=== PATIENT | female | born 1945 | race Caucasian/White ===

== ENCOUNTER → 2016-08-28 | Outpatient (CLI) | payer MEDICARE, BC ==
--- NOTE | 2016-08-31 08:15 | MM ---
Reason for exam: screening (asymptomatic). Last mammogram was performed 1 year and 2 months ago. History: Patient is postmenopausal and history of other cancer. Family history of premenopausal breast cancer in maternal aunt, breast cancer in sister at age 70, and breast cancer in maternal aunt. Physical Findings: A clinical breast exam by your physician is recommended on an annual basis and results should be correlated with mammographic findings. MG 3D Screening Mammo W/Cad Bilateral CC and MLO view(s) were taken. Prior study comparison: June 27, 2015, right breast MG 3d work up w/cad RT. June 20, 2015, bilateral MG screening mammo w CAD. There are scattered fibroglandular densities. Finding #1: There is a 4 mm oval mass in the upper outer quadrant of the left breast. Finding #2: There are stable typically benign calcifications in both breasts. ASSESSMENT: Incomplete: need additional imaging evaluation, BI-RAD 0 RECOMMENDATION: Ultrasound of the left breast. [facility] will attempt to contact patient to return for ultrasound.
== END | disposition home or self-care (01) ==
LOC: RADMAMWWP 12:48
PROVIDERS: ATTEND Internal Medicine
DX: Z12.31 Encounter for screening mammogram for malignant neoplasm of breast (principal)
CPT/HCPCS: 77063; G0202

== ENCOUNTER → 2016-09-02 | Outpatient (CLI) | payer MEDICARE, BC ==
--- NOTE | 2016-09-02 11:56 | USB ---
Reason for exam: additional evaluation requested from abnormal screening. History: Patient is postmenopausal and history of other cancer. Family history of premenopausal breast cancer in maternal aunt, breast cancer in sister at age 70, and breast cancer in maternal aunt. Physical Findings: Nurse Summary: All soft, nodular, movable (nurse ts). US Breast Workup LT Left breast ultrasound demonstrates no cystic or solid lesion seen. These results were verbally communicated with the patient and result sheet given to the patient on 09/02/16. ASSESSMENT: Negative, BI-RAD 1 RECOMMENDATION: Routine screening mammogram of both breasts in 1 year.
== END | disposition home or self-care (01) ==
LOC: RADUSWWP 10:15
PROVIDERS: ATTEND Internal Medicine
DX: R92.8 Other abnormal and inconclusive findings on diagnostic imaging of breast (principal)

== ENCOUNTER → 2018-03-09 | Outpatient (CLI) | payer MEDICARE, BC ==
[2018-03-09 09:27] LABS: Basophils % (A) 1 %; Eosinophils # (A) 0.1 k/uL (0-0.7); Eosinophils % (A) 1 %; HCT 40.5 % (34.0-46.0); HGB 12.9 gm/dL (11.4-16.0); Lymphocytes # (A) 0.8 k/uL (1.0-4.8); Lymphocytes % (A) 14 %; MCH 30.5 pg (25.0-35.0); MCHC 31.9 g/dL (31.0-37.0); MCV 95.7 fL (80.0-100.0); Mean Platelet Volume 6.6; Monocytes # (A) 0.3 k/uL (0-1.0); Monocytes % (A) 5 %; Neutrophils # (A) 4.7 k/uL (1.3-7.7); Neutrophils % (A) 78 %; Platelet Count 225 k/uL (150-450); RBC 4.23 m/uL (3.80-5.40); RDW 13.9 % (11.5-15.5)
[2018-03-09 09:40] LABS: ALT 24 U/L (9-52); AST 30 U/L (14-36); Albumin 4.3 g/dL (3.5-5.0); Alkaline Phosphatase 26 U/L (38-126); Anion Gap 9 mmol/L; Blood Urea Nitrogen 23 mg/dL (7-17); Calcium 9.7 mg/dL (8.4-10.2); Carbon Dioxide 26 mmol/L (22-30); Chloride 107 mmol/L (98-107); Cholesterol 163 mg/dL (<200); Glucose 94 mg/dL (74-99); HDL Cholesterol 71 mg/dL (40-60); LDL Cholesterol,Calculated 74 mg/dL (0-99); Potassium 4.7 mmol/L (3.5-5.1); Sodium 142 mmol/L (137-145); Total Bilirubin 0.5 mg/dL (0.2-1.3); Total Protein 7.2 g/dL (6.3-8.2); Triglycerides 90 mg/dL (<150)
--- NOTE | 2018-03-09 09:48 | BD ---
EXAMINATION TYPE: Axial Bone Density DATE OF EXAM: 03/09/2018 COMPARISON: DEXA June 20, 2015. CLINICAL HISTORY: Postmenopausal female with osteopenia per order Height: 5 FT 4 1/2 IN Weight: 187 FRAX RISK QUESTIONS: Secondary Osteoporosis: RISK FACTORS HISTORY OF: Family History of Osteoporosis: YES Active: YES Postmenopausal woman: PART HYST AGE 41 If Premenopausal, do you have irregular periods: Take estrogen and/or progesterone medications: TOOK FOR APPROX 5 YEARS AFTER HYST Lost more than 2 inches in height since high school: YES MEDICATIONS: Additional Medications: SIMVASTATIN, EFFEXOR, MONTELUKAST Additional History: LUNG CANCER X3 CHEMO AND RADIATION EXAM MEASUREMENTS: Bone mineral densitometry was performed using the [employer] System. Bone mineral density as measured about the Lumbar spine is: ----- L1-L4(G/cm2): 1.337 T Score Values are as follows: ----- L2: 0.5 ----- L3: 2.0 ----- L4: 1.6 ----- L1-L4: 1.3 Bone mineral density has: INCREASED 4.8 % since study of: 2016 Bone mineral density about the R hip (g/cm2): 0.732 Bone mineral density about the L hip (g/cm2): 0.866 T Score values are as follows: -----R Neck: -2.2 -----L Neck: -1.2 -----R Total: -1.5 -----L Total: -1.3 Bone mineral density has: INCREASED 2.6 % since study of: IMPRESSION: Osteopenia (T Score between -2.5 and -1) is redemonstrated overall in both hips. Bone density noted s lightly increased or improved from prior. There remains slightly increased risk of fracture and the patient may be considered for treatment. Re-Screen 2-5 years. NOTE: T-SCORE=SD OF THE YOUNG ADULT MEAN.
--- NOTE | 2018-03-09 13:05 | MM ---
Reason for exam: screening (asymptomatic). Last mammogram was performed 1 year and 6 months ago. History: Patient is postmenopausal and history of other cancer. Family history of premenopausal breast cancer in maternal aunt, breast cancer in sister at age 70, and breast cancer in maternal aunt. Physical Findings: A clinical breast exam by your physician is recommended on an annual basis and results should be correlated with mammographic findings. MG 3D Screening Mammo W/Cad Bilateral CC and MLO view(s) were taken. Prior study comparison: August 28, 2016, bilateral MG 3d screening mammo w/cad. June 27, 2015, right breast MG 3d work up w/cad RT. The breast tissue is heterogeneously dense. This may lower the sensitivity of mammography. There are benign appearing round calcifications bilaterally. There is no discrete abnormality. ASSESSMENT: Benign, BI-RAD 2 RECOMMENDATION: Routine screening mammogram of both breasts in 1 year.
== END | disposition home or self-care (01) ==
LOC: RADMAMWWP 07:09
PROVIDERS: ATTEND Internal Medicine
DX: Z12.31 Encounter for screening mammogram for malignant neoplasm of breast (principal); M85.851 Other specified disorders of bone density and structure, right thigh; M85.852 Other specified disorders of bone density and structure, left thigh; E78.5 Hyperlipidemia, unspecified; J44.9 Chronic obstructive pulmonary disease, unspecified; F32.9 Major depressive disorder, single episode, unspecified; C34.90 Malignant neoplasm of unspecified part of unspecified bronchus or lung
CPT/HCPCS: 36415; 77063; 77067; 77080; 80053; 80061; 85025

== ENCOUNTER → 2018-07-14 | Outpatient (CLI) | payer MEDICARE, BC ==
[2018-07-14 08:46] LABS: ALT 33 U/L (9-52); AST 25 U/L (14-36); Albumin 4.6 g/dL (3.5-5.0); Alkaline Phosphatase 32 U/L (38-126); Anion Gap 8 mmol/L; Blood Urea Nitrogen 25 mg/dL (7-17); Calcium 9.6 mg/dL (8.4-10.2); Carbon Dioxide 28 mmol/L (22-30); Chloride 105 mmol/L (98-107); Glucose 95 mg/dL (74-99); Potassium 4.5 mmol/L (3.5-5.1); Sodium 141 mmol/L (137-145); Total Bilirubin 0.5 mg/dL (0.2-1.3)
--- NOTE | 2018-07-14 11:55 | US ---
EXAMINATION TYPE: US abdomen complete DATE OF EXAM: 07/14/2018 COMPARISON: None CLINICAL HISTORY: 72-year-old female R10.9 abdominal pain. N/V, and bloating. TECHNIQUE: Multiple sonographic images of the abdomen are obtained. FINDINGS: EXAM MEASUREMENTS: Liver Length: 15.3 cm Gallbladder Wall: 0.2 cm CBD: 0.5 cm Spleen: 9.2 cm Right Kidney: 11.3 x 4.5 x 5.7 cm Left Kidney: 10.3 x 5.1 x 5.6 cm Pancreas: Suboptimal visualization of the pancreatic tail secondary to shadowing from bowel gas. Visu alized portions show no gross pathology. Liver: wnl Gallbladder: Borderline distended likely due to fasting state. No wall thickening, pericholecystic f luid, or shadowing calculi. Evidence for sonographic Grande's sign: No CBD: wnl Spleen: wnl Right Kidney: No hydronephrosis. Left Kidney: No hydronephrosis. Upper IVC: wnl Abd Aorta: Atherosclerotic calcifications noted. IMPRESSION: Borderline distended gallbladder likely due to fasting state. No evidence for cholelithiasis or ancil morenita findings of acute cholecystitis.
== END | disposition home or self-care (01) ==
LOC: RADUSWWP 07:43
PROVIDERS: ATTEND Internal Medicine
DX: R10.9 Unspecified abdominal pain (principal); R14.0 Abdominal distension (gaseous); R11.2 Nausea with vomiting, unspecified; M85.80 Other specified disorders of bone density and structure, unspecified site
CPT/HCPCS: 76700; 80053

== ENCOUNTER → 2018-07-25 | Outpatient (CLI) | payer MEDICARE, BC ==
[~2018-07-25] MED LIST: SODIUM CHLORIDE 0.9% 500 ML 500 ML in EMPTY BAG 1 BAG IV PRN; ZOLEDRONIC ACID 5 MG in SODIUM CHLORIDE 0.9% 100 ML IV NR
[2018-07-25 11:31] VITALS: BP 129/78; PULSE 73; RESP 16; TEMP 98.1
== END | disposition home or self-care (01) ==
LOC: PROCWHC3 11:04
PROVIDERS: ATTEND Internal Medicine
DX: M81.0 Age-related osteoporosis without current pathological fracture (principal); Z91.048 Other nonmedicinal substance allergy status; Z88.5 Allergy status to narcotic agent; Z88.1 Allergy status to other antibiotic agents
CPT/HCPCS: 96365; J3489

== ENCOUNTER 2018-09-14 16:36 | Inpatient (IN) | payer MEDICARE, BC ==
[2018-09-14] MEDS ORDERED: SODIUM CHLORIDE 0.9% 1,000 ML IV STA ×2 (17:05)
--- NOTE | 2018-09-14 17:20 | ED ---
Weakness HPI - General Chief complaint: Weakness Stated complaint: weakness Time Seen by Provider: 09/14/18 17:05 Source: patient, RN notes reviewed, old records reviewed Mode of arrival: wheelchair Limitations: no limitations - History of Present Illness Initial comments: This is a 72-year-old female the ER for evaluation. Patient resents today for evaluation of weakness. No history of C. diff. This and diarrhea nausea no vomiting. Patient feels weak with decreased oral intake decreased appetite. Patient denies recent sick contacts denies recent travel history. No significant complaints. No recent change in medications MD Complaint: generalized weakness -: days(s) Location: generalized Severity: mild Severity scale (1-10): 3 Consistency: intermittent Improves with: none Worsens with: none Context: recent illness, history of similar Associated Symptoms: loss of appetite, nausea/vomiting - Related Data Home Medications Medication Instructions Recorded Confirmed Calcium Carbonate/Vitamin D3 1 each PO DAILY 06/05/14 09/14/18 [Calcium 600 + Vit D Tablet] Montelukast Sodium [Singulair] 10 mg PO DAILY 06/05/14 09/14/18 Simvastatin [Zocor] 20 mg PO DAILY 06/05/14 09/14/18 Lisinopril [Zestril] 5 mg PO DAILY 07/25/18 09/14/18 Venlafaxine HCl [Effexor XR] 75 mg PO DAILY 07/25/18 09/14/18 Acetaminophen Tab [Tylenol] 1,500 mg PO BID 09/14/18 09/14/18 Aspirin [[place] Aspirin EC] 81 mg PO DAILY 09/14/18 09/14/18 Budesonide [Pulmicort] 0.5 mg INHALATION RT-QID 09/14/18 09/14/18 Ipratropium-Albuterol Nebulize 3 ml INHALATION RT-QID 09/14/18 09/14/18 [Duoneb 0.5 mg-3 mg/3 ml Soln] Multivitamins, Thera [Multivitamin 1 tab PO DAILY 09/14/18 09/14/18 (formulary)] Turmeric Root Extract [Turmeric] 500 mg PO DAILY 09/14/18 09/14/18 metroNIDAZOLE [Flagyl] 500 mg PO Q8HR 09/14/18 09/14/18 Allergies Allergy/AdvReac Type Severity Reaction Status Date / Time cephalexin monohydrate Allergy Unknown Verified 09/14/18 17:46 [From Keflex] codeine AdvReac Nausea Verified 09/14/18 17:46 METAL Allergy Swelling Uncoded 09/14/18 16:51 Review of Systems ROS Statement: Those systems with pertinent positive or pertinent negative responses have been documented in the HPI. ROS Other: All systems not noted in ROS Statement are negative. Past Medical History Past Medical History: Asthma, Cancer, COPD, Hyperlipidemia Additional Past Medical History / Comment(s): Hx. arthritis History of Any Multi-Drug Resistant Organisms: None Reported Past Surgical History: Hysterectomy, Orthopedic Surgery Additional Past Surgical History / Comment(s): Hx. cataracts removed - bilat Hx.left carotid endart 2-3 yrs ago Hx. partial hyster 1988 Hx 1970rt ankle surgery after falling (5 operations) after 2.5 yrs Past Anesthesia/Blood Transfusion Reactions: No Reported Reaction Past Psychological History: No Psychological Hx Reported Smoking Status: Former smoker Past Alcohol Use History: Rare Past Drug Use History: None Reported - Past Family History Father Family Medical History: Cancer Additional Family Medical History / Comment(s): skin cancer Mother Additional Family Medical History / Comment(s): bedridden with arthritis Sister(s) Family Medical History: Cancer Additional Family Medical History / Comment(s): breast cancer-1 sister skin cancer a nother sister Brother(s) Family Medical History: Cancer Additional Family Medical History / Comment(s): brother-liver with mets- , another brother - agent orange exposeure- General Exam Limitations: no limitations General appearance: alert, in no apparent distress Head exam: Present: atraumatic, normocephalic, normal inspection Eye exam: Present: normal appearance, PERRL, EOMI. Absent: scleral icterus, conjunctival injection, periorbital swelling ENT exam: Present: normal exam, mucous membranes moist Neck exam: Present: normal inspection. Absent: tenderness, meningismus, l ymphadenopathy Respiratory exam: Present: normal lung sounds bilaterally. Absent: respiratory distress, wheezes, rales, rhonchi, stridor Cardiovascular Exam: Present: normal rhythm, tachycardia, normal heart sounds. Absent: systolic murmur, diastolic murmur, rubs, gallop, clicks GI/Abdominal exam: Present: soft, normal bowel sounds. Absent: distended, tenderness, guarding, rebound, rigid Extremities exam: Present: normal inspection, full ROM, normal capillary refill. Absent: tenderness, pedal edema, joint swelling, calf tenderness Back exam: Present: normal inspection Neurological exam: Present: alert, oriented X3, CN II-XII intact Psychiatric exam: Present: normal affect, normal mood Skin exam: Present: warm, dry, intact, normal color. Absent: rash Course Vital Signs 09/14/18 09/14/18 16:43 18:46 Temperature 99.5 F Pulse Rate 110 H 51 L Respiratory 20 18 Rate Blood Pressure 86/58 137/88 O2 Sat by Pulse 98 97 Oximetry - Reevaluation(s) Reevaluation #1: 09/14/18 20:15 Medical record is reviewed Reevaluation #2: 09/14/18 20:15 Patient feels improved EKG Findings - EKG Comments: EKG Findings:: EKG shows sinus rhythm at 93, IN 140, QRS 86, QTc 479 Medical Decision Making - Medical Decision Making 72 female the ER for evaluation. Patient has history of significant weakness. Patient's coming for worsening weakness worsening appetite, dehydration. We'll admit for IV hydration and treatment of C. diff. - Lab Data Result diagrams: 09/14/18 17:34 09/14/18 17:34 Lab Results 09/14/18 09/14/18 09/14/18 Range/Units 17:34 17:34 17:34 WBC 13.5 H (3.8-10.6) k/uL RBC 4.47 (3.80-5.40) m/uL Hgb 13.4 (11.4-16.0) gm/dL Hct 41.5 (34.0-46.0) % MCV 92.7 (80.0-100.0) fL MCH 29.9 (25.0-35.0) pg MCHC 32.2 (31.0-37.0) g/dL RDW 14.3 (11.5-15.5) % Plt Count 251 (150-450) k/uL Neutrophils % 87 % Lymphocytes % 6 % Monocytes % 5 % Eosinophils % 0 % Basophils % 0 % Neutrophils # 11.8 H (1.3-7.7) k/uL Lymphocytes # 0.7 L (1.0-4.8) k/uL Monocytes # 0.7 (0-1.0) k/uL Eosinophils # 0.1 (0-0.7) k/uL Basophils # 0.0 (0-0.2) k/uL PT (9.0-12.0) sec INR (<1.2) APTT (22.0-30.0) sec Sodium 138 (137-145) mmol/L Potassium 3.9 (3.5-5.1) mmol/L Chloride 103 (98-107) mmol/L Carbon Dioxide 20 L (22-30) mmol/L Anion Gap 15 mmol/L BUN 16 (7-17) mg/dL Creatinine 0.72 (0.52-1.04) mg/dL Est GFR (CKD-EPI)AfAm >90 (>60 ml/min/1.73 sqM) Est GFR (CKD-EPI)NonAf 84 (>60 ml/min/1.73 sqM) Glucose 112 H (74-99) mg/dL Plasma Lactic Acid Nav 1.3 (0.7-2.0) mmol/L Calcium 8.7 (8.4-10.2) mg/dL Phosphorus 2.7 (2.5-4.5) mg/dL Magnesium 2.1 (1.6-2.3) mg/dL Total Bilirubin 0.5 (0.2-1.3) mg/dL AST 31 (14-36) U/L ALT 14 (9-52) U/L Alkaline Phosphatase 56 (38-126) U/L Troponin I (0.000-0.034) ng/mL Total Protein 7.4 (6.3-8.2) g/dL Albumin 4.2 (3.5-5.0) g/dL 09/14/18 09/14/18 Range/Units 17:34 18:00 WBC (3.8-10.6) k/uL RBC (3.80-5.40) m/uL Hgb (11.4-16.0) gm/dL Hct (34.0-46.0) % MCV (80.0-100.0) fL MCH (25.0-35.0) pg MCHC (31.0-37.0) g/dL RDW (11.5-15.5) % Plt Count (150-450) k/uL Neutrophils % % Lymphocytes % % Monocytes % % Eosinophils % % Basophils % % Neutrophils # (1.3-7.7) k/uL Lymphocytes # (1.0-4.8) k/uL Monocytes # (0-1.0) k/uL Eosinophils # (0-0.7) k/uL Basophils # (0-0.2) k/uL PT 11.0 (9.0-12.0) sec INR 1.0 (<1.2) APTT 25.5 (22.0-30.0) sec Sodium (137-145) mmol/L Potassium (3.5-5.1) mmol/L Chloride (98-107) mmol/L Carbon Dioxide (22-30) mmol/L Anion Gap mmol/L BUN (7-17) mg/dL Creatinine (0.52-1.04) mg/dL Est GFR (CKD-EPI)AfAm (>60 ml/min/1.73 sqM) Est GFR (CKD-EPI)NonAf (>60 ml/min/1.73 sqM) Glucose (74-99) mg/dL Plasma Lactic Acid Nav (0.7-2.0) mmol/L Calcium (8.4-10.2) mg/dL Phosphorus (2.5-4.5) mg/dL Magnesium (1.6-2.3) mg/dL Total Bilirubin (0.2-1.3) mg/dL AST (14-36) U/L ALT (9-52) U/L Alkaline Phosphatase (38-126) U/L Troponin I <0.012 (0.000-0.034) ng/mL Total Protein (6.3-8.2) g/dL Albumin (3.5-5.0) g/dL - Radiology Data Radiology results: report reviewed (Chest x-rays negative for acute disease), image reviewed Disposition Clinical Impression: Dehydration, Weakness, C. difficile colitis Disposition: ADMITTED IP TO THIS [facility] Condition: Fair Is patient prescribed a controlled substance at d/c from ED?: No Referrals: Dedra Teague MD [Primary Care Provider] - 1-2 days
[2018-09-14 18:02] LABS: Basophils % (A) 0 %; Eosinophils # (A) 0.1 k/uL (0-0.7); Eosinophils % (A) 0 %; HCT 41.5 % (34.0-46.0); HGB 13.4 gm/dL (11.4-16.0); Lymphocytes # (A) 0.7 k/uL (1.0-4.8); Lymphocytes % (A) 6 %; MCH 29.9 pg (25.0-35.0); MCHC 32.2 g/dL (31.0-37.0); MCV 92.7 fL (80.0-100.0); Mean Platelet Volume 7.8; Monocytes # (A) 0.7 k/uL (0-1.0); Monocytes % (A) 5 %; Neutrophils # (A) 11.8 k/uL (1.3-7.7); Neutrophils % (A) 87 %; Platelet Count 251 k/uL (150-450); RBC 4.47 m/uL (3.80-5.40); RDW 14.3 % (11.5-15.5); WBC 13.5 k/uL (3.8-10.6)
[2018-09-14 18:07] LABS: ALT 14 U/L (9-52); AST 31 U/L (14-36); African American GFR (CKD) >90 (>60 ml/min/1.73 sqM); Albumin 4.2 g/dL (3.5-5.0); Alkaline Phosphatase 56 U/L (38-126); Anion Gap 15 mmol/L; Blood Urea Nitrogen 16 mg/dL (7-17); Calcium 8.7 mg/dL (8.4-10.2); Carbon Dioxide 20 mmol/L (22-30); Chloride 103 mmol/L (98-107); Glucose 112 mg/dL (74-99); Magnesium 2.1 mg/dL (1.6-2.3); Phosphorus 2.7 mg/dL (2.5-4.5); Potassium 3.9 mmol/L (3.5-5.1); Sodium 138 mmol/L (137-145); Total Bilirubin 0.5 mg/dL (0.2-1.3); Total Protein 7.4 g/dL (6.3-8.2)
[2018-09-14 18:24] LABS: Partial Thromboplastin Time 25.5 sec (22.0-30.0)
--- NOTE | 2018-09-14 18:35 | XR ---
EXAMINATION: XR chest 2V DATE AND TIME: 09/14/2018 6:15 PM CLINICAL INDICATION: PHH; Weakness TECHNIQUE: Departmental protocol COMPARISON: None FINDINGS: The lungs are clear. The pleural spaces are negative. The cardiac silhouette is not enlarged. The remainder of the mediastinal silhouette is unremarkable. The skeletal structures and soft tissues are negative for acute findings. IMPRESSION: NO ACUTE PROCESS.
[2018-09-14] MEDS ORDERED: metroNIDAZOLE 500 MG TAB PO STA (20:13)
[2018-09-14] MEDS ORDERED: ONDANSETRON 4 MG/2 ML VIAL IVP STA (20:13)
[2018-09-14] MEDS ORDERED: ONDANSETRON 4 MG/2 ML VIAL IVP PRN (20:13)
[2018-09-14 20:30] LABS: Appearance,Urine Clear (Clear); Bilirubin,Urine Negative (Negative); Blood,Urine Negative (Negative); Color,Urine Light Red; Glucose,Urine (UA) Negative (Negative); Hyaline Casts,Urine 4 /lpf (0-2); Ketones,Urine 3+ (Negative); Leukocyte Esterase,Urine Moderate (Negative); Mucus,Urine Many /hpf; Nitrite,Urine Negative (Negative); Protein,Urine 1+ (Negative); RBC,Urine 3 /hpf (0-5); Squamous Epithelial Cell,Urine 1 /hpf (0-4); Urobilinogen,Urine <2.0 mg/dL (<2.0)
[2018-09-15] MEDS ORDERED: IBUPROFEN 800 MG TAB PO STA (00:20)
[2018-09-15] MEDS ORDERED: ACETAMINOPHEN TAB 500 MG TAB PO STA (00:20)
[2018-09-15] MEDS: ENOXAPARIN 40 MG/0.4 ML SYRINGE SQ SCH (09:09)
[2018-09-15] MEDS: metroNIDAZOLE 500 MG TAB PO SCH ×2 (09:09→13:46)
[2018-09-15] MEDS: PANTOPRAZOLE 40 MG/10 ML VIAL IVP SCH (09:09)
[2018-09-15] MEDS: ACETAMINOPHEN TAB 325 MG TAB PO PRN ×2 (10:52→21:06)
[2018-09-15] MEDS ORDERED: BUDESONIDE 0.5 MG/2 ML NEBU INHALATION SCH (12:00)
[2018-09-15] MEDS: IPRATROPIUM-ALBUTEROL 3 ML NEB INHALATION SCH ×3 (13:34→19:34)
[2018-09-15] MEDS: BUDESONIDE 0.5 MG/2 ML NEBU INHALATION SCH ×2 (13:34→19:34)
[2018-09-15] MEDS: CHOLESTYRAMINE (WITH SUGAR) 4 GM PACKET PO SCH ×2 (15:00→18:08)
[2018-09-15] MEDS: metroNIDAZOLE-NS PMX 500 MG in SALINE 1 100ML.BAG IVPB SCH (15:00)
[2018-09-15] MEDS ORDERED: ACETAMINOPHEN TAB 500 MG TAB PO PRN (21:00)
[2018-09-16] MEDS: metroNIDAZOLE-NS PMX 500 MG in SALINE 1 100ML.BAG IVPB SCH ×4 (00:23→23:57)
--- NOTE | 2018-09-16 01:12 | P.HPIM ---
History of Present Illness H&P Date: 09/15/18 Chief Complaint: Generalized weakness and diarrhea. Patient is a 72 old female with a known history of asthma/COPD, hyperlipidemia presents to hospital with generalized weakness and diarrhea. Patient was recently diagnosed with C. diff infection by her primary care physician was placed on oral metronidazole tablets. Patient is still having diarrhea and became weak and presents to ER. Patient also having decreased oral intake and poor appetite. No complains of chest pain or shortness of breath. No headache or dizziness or lightheadedness. Patient denied dysuria or hematuria. Urinalysis showed leukocyte esterase positive and white blood cells 29. Denied any fever or chills. WBC 13.5 Patient was on antibiotics for bronchitis 2 weeks prior. Review of Systems Constitutional: Patient denies any fever or chills . Patient does have generalized weakness and poor appetite. Abdomen: Patient denied nausea vomiting and diarrhea and abdominal pain. Cardiovascular: Patient denies any chest pain or short of breath no pa lpitations. Respiratory: patient denied any cough is from production. No shortness of breath Neurologic: Patient denied any numbness or tingling headache. Musculoskeletal: Patient denies any complaints of joint swelling or deformity. Skin: Negative Psychiatric: Negative Endocrine: No heat or cold intolerance. No recent weight gain. Genitourinary: No dysuria or hematuria. All other 14 point ROS negative except the above Past Medical History Past Medical History: Asthma, Cancer, COPD, Hyperlipidemia Additional Past Medical History / Comment(s): Hx. arthritis History of Any Multi-Drug Resistant Organisms: None Reported Past Surgical History: Hysterectomy, Orthopedic Surgery Additional Past Surgical History / Comment(s): Hx. cataracts removed - bilat Hx.left carotid endart 2-3 yrs ago Hx. partial hyster 1987 Hx 1970rt ankle surgery after falling (5 operations) after 2.5 yrs Past Anesthesia/Blood Transfusion Reactions: No Reported Reaction Past Psychological History: No Psychological Hx Reported Smoking Status: Former smoker Past Alcohol Use History: Rare Past Drug Use History: None Reported - Past Family History Father Family Medical History: Cancer Additional Family Medical History / Comment(s): skin cancer Mother Additional Family Medical History / Comment(s): bedridden with arthritis Sister(s) Family Medical History: Cancer Additional Family Medical History / Comment(s): breast cancer-1 sister skin cancer a nother sister Brother(s) Family Medical History: Cancer Additional Family Medical History / Comment(s): brother-liver with mets- , another brother - agent orange exposeure- Medications and Allergies Home Medications Medication Instructions Recorded Confirmed Type Calcium Carbonate/Vitamin D3 1 each PO DAILY 06/05/14 09/14/18 History [Calcium 600 + Vit D Tablet] Montelukast Sodium [Singulair] 10 mg PO DAILY 06/05/14 09/14/18 History Simvastatin [Zocor] 20 mg PO DAILY 06/05/14 09/14/18 History Lisinopril [Zestril] 5 mg PO DAILY 07/25/18 09/14/18 History Venlafaxine HCl [Effexor XR] 75 mg PO DAILY 07/25/18 09/14/18 History Acetaminophen Tab [Tylenol] 1,500 mg PO BID 09/14/18 09/14/18 History Aspirin [[place] Aspirin EC] 81 mg PO DAILY 09/14/18 09/14/18 History Budesonide [Pulmicort] 0.5 mg INHALATION RT-QID 09/14/18 09/14/18 History Ipratropium-Albuterol Nebulize 3 ml INHALATION RT-QID 09/14/18 09/14/18 History [Duoneb 0.5 mg-3 mg/3 ml Soln] Multivitamins, Thera [Multivitamin 1 tab PO DAILY 09/14/18 09/14/18 History (formulary)] Turmeric Root Extract [Turmeric] 500 mg PO DAILY 09/14/18 09/14/18 History metroNIDAZOLE [Flagyl] 500 mg PO Q8HR 09/14/18 09/14/18 History Allergies Allergy/AdvReac Type Severity Reaction Status Date / Time cephalexin monohydrate Allergy Unknown Verified 09/14/18 17:46 [From Keflex] codeine AdvReac Nausea Verified 09/14/18 17:46 METAL Allergy Swelling Uncoded 09/14/18 16:51 Physical Exam Vitals: Vital Signs Temp Pulse Pulse Resp BP BP Pulse Ox 09/15/18 10:40 18 09/15/18 08:08 97.8 F 101 H 18 98/66 96 09/15/18 07:40 98.1 F 18 109/67 97 09/15/18 06:48 99.0 F 85 18 100/68 98 06/27/19 01:36 100.8 F H 09/15/18 00:16 102.2 F H 94 18 111/67 95 09/14/18 21:06 97 18 119/63 96 09/14/18 18:46 51 L 18 137/88 97 09/14/18 16:43 99.5 F 110 H 20 86/58 98 Intake and Output 09/14/18 09/15/18 09/15/18 22:59 06:59 14:59 Other: Weight 81.647 kg PHYSICAL EXAMINATION: Patient is lying in the bed comfortably, no acute distress, awake alert and oriented.. HEENT: Normocephalic. Neck is supple. Pupils reactive. Nostrils clear. Oral cavity is moist. Ears reveal no drainage. Neck reveals no JVD, carotid bruits, or thyromegaly. CHEST EXAMINATION: Trachea is central. Symmetrical expansion. Lung alas clear to auscultation and percussion. CARDIAC: Normal S1, S2 with no gallops. No murmurs ABDOMEN: Soft. Bowel sounds normal. No organomegaly. No abdominal bruits. Extremities: reveal no edema. No clubbing or cyanosis Neurologically awake, alert, oriented x3 with well-coordinated movements. No focal deficits noted Skin: No rash or skin lesions. Psychiatric: Coperative. Nonsuicidal Musculoskeletal: No joint swelling or deformity. Normal range of motion. Results CBC & Chem 7: 09/14/18 17:34 09/14/18 17:34 Labs: Abnormal Lab Results - Last 24 Hours (Table) 09/14/18 09/14/18 09/14/18 Range/Units 17:34 17:34 19:48 WBC 13.5 H (3.8-10.6) k/uL Neutrophils # 11.8 H (1.3-7.7) k/uL Lymphocytes # 0.7 L (1.0-4.8) k/uL Carbon Dioxide 20 L (22-30) mmol/L Glucose 112 H (74-99) mg/dL Urine Protein 1+ H (Negative) Urine Ketones 3+ H (Negative) Ur Leukocyte Esterase Moderate H (Negative) Urine WBC 29 H (0-5) /hpf Hyaline Casts 4 H (0-2) /lpf Urine Mucus Many H (None) /hpf Microbiology - Last 24 Hours (Table) 09/14/18 19:48 Urine Culture - Preliminary Urine,Voided Thrombosis Risk Factor Assmnt - DVT/VTE Prophylaxis DVT/VTE Prophylaxis: Pharmacologic Prophylaxis ordered - Choose All That Apply Each Factor Represents 1 point: Abnormal pulmonary function (COPD) Each Risk Factor Represents 2 Points: Age 61-74 years Each Risk Factor Represents 3 Points: Family history of DVT/PE Thrombosis Risk Factor Assessment Total Risk Factor Score: 6 Thrombosis Risk Factor Assessment Level: High Risk Assessment and Plan Assessment: Diarrhea secondary to acute C. diff infection Acute urinary tract infection with gram-negative bacilli COPD/asthma Generalized weakness and poor oral intake and Hyperlipidemia Osteoarthritis History of left carotid endarterectomy Previous history of smoking DVT prophylaxis Plan: Patient will be continued on gentle hydration. Continue with metronidazole, changed to IV. We will also start on ceftriaxone for possible urinary tract infection and follow-up final urine culture reports. will add questron tab. PTOT to be consulted and further recommendations based on the clinical course. Time with Patient: Greater than 30
[2018-09-16] MEDS: ASPIRIN 81 MG PO SCH (07:10)
[2018-09-16] MEDS: LISINOPRIL 5 MG TAB PO SCH (07:10)
[2018-09-16] MEDS: VENLAFAXINE HCL ER 75 MG CAP PO SCH (07:10)
[2018-09-16] MEDS: MONTELUKAST 10 MG TAB PO SCH (07:11)
[2018-09-16] MEDS: PANTOPRAZOLE 40 MG/10 ML VIAL IVP SCH (07:11)
[2018-09-16] MEDS: CALCIUM CARB-VIT D 500MG-200UN 1 EACH TAB PO SCH (07:11)
[2018-09-16] MEDS: ENOXAPARIN 40 MG/0.4 ML SYRINGE SQ SCH (07:12)
[2018-09-16] MEDS: BUDESONIDE 0.5 MG/2 ML NEBU INHALATION SCH ×2 (08:13→20:01)
[2018-09-16] MEDS: IPRATROPIUM-ALBUTEROL 3 ML NEB INHALATION SCH ×4 (08:13→20:01)
[2018-09-16 09:03] LABS: Basophils % (A) 0 %; Eosinophils # (A) 0.1 k/uL (0-0.7); Eosinophils % (A) 1 %; HCT 33.6 % (34.0-46.0); HGB 10.9 gm/dL (11.4-16.0); Lymphocytes # (A) 0.7 k/uL (1.0-4.8); Lymphocytes % (A) 5 %; MCH 29.9 pg (25.0-35.0); MCHC 32.4 g/dL (31.0-37.0); MCV 92.3 fL (80.0-100.0); Mean Platelet Volume 8.1; Monocytes # (A) 0.5 k/uL (0-1.0); Monocytes % (A) 4 %; Neutrophils # (A) 12.4 k/uL (1.3-7.7); Neutrophils % (A) 89 %; Platelet Count 228 k/uL (150-450); RBC 3.63 m/uL (3.80-5.40); RDW 13.9 % (11.5-15.5); WBC 13.8 k/uL (3.8-10.6)
[2018-09-16 09:10] LABS: African American GFR (CKD) >90 (>60 ml/min/1.73 sqM); Anion Gap 11 mmol/L; Blood Urea Nitrogen 13 mg/dL (7-17); Calcium 7.9 mg/dL (8.4-10.2); Carbon Dioxide 20 mmol/L (22-30); Chloride 108 mmol/L (98-107); Glucose 104 mg/dL (74-99); Sodium 139 mmol/L (137-145)
[2018-09-16] MEDS: CHOLESTYRAMINE (WITH SUGAR) 4 GM PACKET PO SCH ×3 (09:56→16:47)
[2018-09-16] MEDS ORDERED: Potassium Replacement Protocol 1 EACH MISC MISCELLANE PRN ×2 (11:53→12:16)
[2018-09-16] MEDS: POTASSIUM CHLORIDE ER 20 MEQ TAB.ER PO SCH ×2 (12:27→14:48)
[2018-09-16] MEDS: SODIUM CHLORIDE 0.9% 1,000 ML IV SCH (12:28)
[2018-09-16] MEDS ORDERED: SODIUM CHLORIDE 0.9% 500 ML 1,000 ML IV ONE (16:08)
[2018-09-17] MEDS: SODIUM CHLORIDE 0.9% 1,000 ML IV SCH ×2 (02:12→14:53)
[2018-09-17] MEDS: metroNIDAZOLE-NS PMX 500 MG in SALINE 1 100ML.BAG IVPB SCH ×2 (07:42→15:37)
[2018-09-17] MEDS: IPRATROPIUM-ALBUTEROL 3 ML NEB INHALATION SCH ×4 (08:27→21:06)
[2018-09-17] MEDS: BUDESONIDE 0.5 MG/2 ML NEBU INHALATION SCH ×2 (08:27→21:06)
[2018-09-17] MEDS: PANTOPRAZOLE 40 MG/10 ML VIAL IVP SCH (09:42)
[2018-09-17] MEDS: CALCIUM CARB-VIT D 500MG-200UN 1 EACH TAB PO SCH (09:42)
[2018-09-17] MEDS: CHOLESTYRAMINE (WITH SUGAR) 4 GM PACKET PO SCH ×3 (09:42→17:42)
[2018-09-17] MEDS: ASPIRIN 81 MG PO SCH (09:42)
[2018-09-17] MEDS: LISINOPRIL 5 MG TAB PO SCH (09:42)
[2018-09-17] MEDS: ENOXAPARIN 40 MG/0.4 ML SYRINGE SQ SCH ×2 (09:42→09:48)
[2018-09-17] MEDS: MONTELUKAST 10 MG TAB PO SCH (09:42)
[2018-09-17] MEDS: VENLAFAXINE HCL ER 75 MG CAP PO SCH (09:42)
[2018-09-17] MEDS: VANCOMYCIN ORAL SOLUTION 250 MG/5 ML BOTTLE PO SCH ×2 (13:32→17:41)
[2018-09-17] MEDS: CHERRY FLAVOR 60 ML BOTTLE PO SCH ×2 (13:32→17:41)
[2018-09-18] MEDS: metroNIDAZOLE-NS PMX 500 MG in SALINE 1 100ML.BAG IVPB SCH ×3 (00:25→15:07)
[2018-09-18] MEDS: VANCOMYCIN ORAL SOLUTION 250 MG/5 ML BOTTLE PO SCH ×4 (00:25→17:14)
[2018-09-18] MEDS: CHERRY FLAVOR 60 ML BOTTLE PO SCH ×4 (00:25→17:14)
[2018-09-18] MEDS: SODIUM CHLORIDE 0.9% 1,000 ML IV SCH ×2 (05:01→17:15)
[2018-09-18 07:40] LABS: African American GFR (CKD) >90 (>60 ml/min/1.73 sqM); Anion Gap 6 mmol/L; Blood Urea Nitrogen 8 mg/dL (7-17); Calcium 7.9 mg/dL (8.4-10.2); Carbon Dioxide 24 mmol/L (22-30); Chloride 109 mmol/L (98-107); Glucose 102 mg/dL (74-99); Potassium 3.5 mmol/L (3.5-5.1); Sodium 139 mmol/L (137-145)
[2018-09-18] MEDS: LISINOPRIL 5 MG TAB PO SCH (07:46)
[2018-09-18] MEDS: ENOXAPARIN 40 MG/0.4 ML SYRINGE SQ SCH (07:46)
[2018-09-18] MEDS: ASPIRIN 81 MG PO SCH (07:46)
[2018-09-18] MEDS: PANTOPRAZOLE 40 MG TABLET PO SCH (07:46)
[2018-09-18] MEDS: MONTELUKAST 10 MG TAB PO SCH (07:46)
[2018-09-18] MEDS: CALCIUM CARB-VIT D 500MG-200UN 1 EACH TAB PO SCH (07:46)
[2018-09-18] MEDS: VENLAFAXINE HCL ER 75 MG CAP PO SCH (07:47)
[2018-09-18 08:10] LABS: Basophils % (A) 0 %; Eosinophils # (A) 0.2 k/uL (0-0.7); Eosinophils % (A) 2 %; Hypochromasia Slight; Lymphocytes % (A) 10 %; MCH 29.6 pg (25.0-35.0); MCHC 32.2 g/dL (31.0-37.0); MCV 91.8 fL (80.0-100.0); Mean Platelet Volume 7.8; Monocytes # (A) 0.4 k/uL (0-1.0); Monocytes % (A) 4 %; Neutrophils # (A) 8.6 k/uL (1.3-7.7); Neutrophils % (A) 84 %; Platelet Count 302 k/uL (150-450); RBC 3.71 m/uL (3.80-5.40); RDW 14.3 % (11.5-15.5); WBC 10.3 k/uL (3.8-10.6)
[2018-09-18] MEDS: BUDESONIDE 0.5 MG/2 ML NEBU INHALATION SCH ×2 (08:21→20:27)
[2018-09-18] MEDS: IPRATROPIUM-ALBUTEROL 3 ML NEB INHALATION SCH ×4 (08:21→20:26)
[2018-09-18] MEDS: CHOLESTYRAMINE (WITH SUGAR) 4 GM PACKET PO SCH ×3 (09:24→17:15)
--- NOTE | 2018-09-18 23:39 | P.PN ---
Subjective Progress Note Date: 09/16/18 Principal diagnosis: Acute C. diff infection Generalized weakness and diarrhea Patient is a 72 old female with a known history of asthma/COPD, hyperlipidemia presents to hospital with generalized weakness and diarrhea. Patient was recently diagnosed with C. diff infection by her primary care physician was placed on oral metronidazole tablets. Patient is still having diarrhea and became weak and presents to ER. Patient also having decreased oral intake and poor appetite. No complains of chest pain or shortness of breath. No headache or dizziness or lightheadedness. Patient denied dysuria or hematuria. Urinalysis showed leukocyte esterase positive and white blood cells 29. Denied any fever or chills. WBC 13.5 Patient was on antibiotics for bronchitis 2 weeks prior. 09/16/18 Patient is still having explosive diarrhea. Potassium is low this is being replaced. Currently being continued on Flagyl 500 mg 3 times a day. WBC 13.8. Urine culture is growing E. coli. Continued on ceftriaxone as well. No fever no chills. Patient does have nausea. No episodes of vomiting. Unable to tolerate oral diet. No complaints of chest pain or shortness of breath. Current medications reviewed. Objective - Vital Signs Vital signs: Vital Signs Temp 97.8 F 09/16/18 15:00 Pulse 84 09/16/18 20:22 Resp 16 09/16/18 15:00 BP 124/73 09/16/18 15:00 Pulse Ox 97 09/16/18 16:34 Intake & Output 09/16/18 09/16/18 09/17/18 06:59 18:59 06:59 Output Total 300 Balance -300 Output: Urine 300 Other: # Voids 1 4 # Bowel Movements 1 5 - Exam PHYSICAL EXAMINATION: Patient is lying in the bed comfortably, no acute distress, awake alert and oriented.. HEENT: Normocephalic. Neck is supple. Pupils reactive. Nostrils clear. Oral cavity is moist. Ears reveal no drainage. Neck reveals no JVD, carotid bruits, or thyromegaly. CHEST EXAMINATION: Trachea is central. Symmetrical expansion. Lung alas clear to auscultation and percussion. CARDIAC: Normal S1, S2 with no gallops. No murmurs ABDOMEN: Soft. Bowel sounds normal. No organomegaly. No abdominal bruits. Extremities: reveal no edema. No clubbing or cyanosis Neurologically awake, alert, oriented x3 with well-coordinated movements. No focal deficits noted Skin: No rash or skin lesions. Psychiatric: Coperative. Nonsuicidal Musculoskeletal: No joint swelling or deformity. Normal range of motion. - Labs CBC & Chem 7: 09/18/18 07:09 09/18/18 07:09 Labs: Abnormal Lab Results - Last 24 Hours (Table) 09/16/18 09/16/18 Range/Units 08:04 08:04 WBC 13.8 H (3.8-10.6) k/uL RBC 3.63 L (3.80-5.40) m/uL Hgb 10.9 L (11.4-16.0) gm/dL Hct 33.6 L (34.0-46.0) % Neutrophils # 12.4 H (1.3-7.7) k/uL Lymphocytes # 0.7 L (1.0-4.8) k/uL Potassium 3.0 L (3.5-5.1) mmol/L Chloride 108 H (98-107) mmol/L Carbon Dioxide 20 L (22-30) mmol/L Creatinine 0.49 L (0.52-1.04) mg/dL Glucose 104 H (74-99) mg/dL Calcium 7.9 L (8.4-10.2) mg/dL Microbiology - Last 24 Hours (Table) 09/14/18 19:48 Urine Culture - Preliminary Urine,Voided Gram Neg Bacilli Assessment and Plan Assessment: Diarrhea secondary to acute C. diff infection Acute urinary tract infection with gram-negative bacilli/E. coli COPD/asthma Generalized weakness and poor oral intake and Hyperlipidemia Osteoarthritis History of left carotid endarterectomy Previous history of smoking DVT prophylaxis Plan: Patient will be continued on gentle hydration. Continue with metronidazole, changed to IV. Continue with ceftriaxone for urinary tract infection and follow-up final urine culture reports. added questron tab. PTOT to be consulted and further recommendations based on the clinical course. Time with Patient: Greater than 30
--- NOTE | 2018-09-18 23:41 | P.PN ---
Subjective Progress Note Date: 09/17/18 Principal diagnosis: Acute C. diff infection Generalized weakness and diarrhea Patient is a 72 old female with a known history of asthma/COPD, hyperlipidemia presents to hospital with generalized weakness and diarrhea. Patient was recently diagnosed with C. diff infection by her primary care physician was placed on oral metronidazole tablets. Patient is still having diarrhea and became weak and presents to ER. Patient also having decreased oral intake and poor appetite. No complains of chest pain or shortness of breath. No headache or dizziness or lightheadedness. Patient denied dysuria or hematuria. Urinalysis showed leukocyte esterase positive and white blood cells 29. Denied any fever or chills. WBC 13.5 Patient was on antibiotics for bronchitis 2 weeks prior. 09/16/18 Patient is still having explosive diarrhea. Potassium is low this is being replaced. Currently being continued on Flagyl 500 mg 3 times a day. WBC 13.8. Urine culture is growing E. coli. Continued on ceftriaxone as well. No fever no chills. Patient does have nausea. No episodes of vomiting. Unable to tolerate oral diet. No complaints of chest pain or shortness of breath. 09/17/2018 Patient is still having diarrhea. Leukocytosis improved. Vancomycin by mouth will be added. Otherwise continued on ceftriaxone for urinary tract infection. Continue with supportive management. No fever no chills. Patient is generally weak and not tolerating oral diet very well. Decreased appetite. All other 14 point review of systems negative except the above. Current medications reviewed. Objective - Vital Signs Vital signs: Vital Signs Temp 98.1 F 09/17/18 19:58 Pulse 80 09/17/18 21:19 Resp 18 09/17/18 19:58 BP 116/63 09/17/18 19:58 Pulse Ox 98 09/17/18 19:58 Intake & Output 09/17/18 09/17/18 09/18/18 06:59 18:59 06:59 Intake Total 1445 600 Balance 1445 600 Intake: Intake, IV Titration 725 600 Amount Sodium Chloride 0.9% 1, 525 600 000 ml @ 75 mls/hr IV . [id number] [facility] Rx#:[id number] cefTRIAXone 1 gm In 100 Sodium Chloride 0.9% 50 ml @ 100 mls/hr IVPB Q24H [facility] Rx#:[id number] metroNIDAZOLE-NS PMX 500 100 mg In Saline 1 100ml.bag @ 100 mls/hr IVPB Q8HR [facility] Rx#:[id number] Oral 720 Other: # Voids 3 # Bowel Movements 2 - Exam PHYSICAL EXAMINATION: Patient is lying in the bed comfortably, no acute distress, awake alert and oriented.. HEENT: Normocephalic. Neck is supple. Pupils reactive. Nostrils clear. Oral cavity is moist. Ears reveal no drainage. Neck reveals no JVD, carotid bruits, or thyromegaly. CHEST EXAMINATION: Trachea is central. Symmetrical expansion. Lung alas clear to auscultation and percussion. CARDIAC: Normal S1, S2 with no gallops. No murmurs ABDOMEN: Soft. Bowel sounds normal. No organomegaly. No abdominal bruits. Extremities: reveal no edema. No clubbing or cyanosis Neurologically awake, alert, oriented x3 with well-coordinated movements. No focal deficits noted Skin: No rash or skin lesions. Psychiatric: Coperative. Nonsuicidal Musculoskeletal: No joint swelling or deformity. Normal range of motion. - Labs CBC & Chem 7: 09/18/18 07:09 09/18/18 07:09 Labs: Microbiology - Last 24 Hours (Table) 09/14/18 19:48 Urine Culture - Final Urine,Voided Escherichia coli Assessment and Plan Assessment: Diarrhea secondary to acute C. diff infection Acute urinary tract infection with gram-negative bacilli/E. coli COPD/asthma Generalized weakness and poor oral intake and Hyperlipidemia Osteoarthritis History of left carotid endarterectomy Previous history of smoking DVT prophylaxis Plan: Patient will be continued on gentle hydration. Continue with metronidazole, changed to IV. Added vancomycin. Continue with ceftriaxone for urinary tract infection and follow-up final urine culture showed E. coli.. added questron tab. PTOT to be consulted and further recommendations based on the clinical course. Time with Patient: Greater than 30
--- NOTE | 2018-09-18 23:44 | P.PN ---
Subjective Progress Note Date: 09/18/18 Principal diagnosis: Acute C. diff infection Generalized weakness and diarrhea Patient is a 72 old female with a known history of asthma/COPD, hyperlipidemia presents to hospital with generalized weakness and diarrhea. Patient was recently diagnosed with C. diff infection by her primary care physician was placed on oral metronidazole tablets. Patient is still having diarrhea and became weak and presents to ER. Patient also having decreased oral intake and poor appetite. No complains of chest pain or shortness of breath. No headache or dizziness or lightheadedness. Patient denied dysuria or hematuria. Urinalysis showed leukocyte esterase positive and white blood cells 29. Denied any fever or chills. WBC 13.5 Patient was on antibiotics for bronchitis 2 weeks prior. 09/16/18 Patient is still having explosive diarrhea. Potassium is low this is being replaced. Currently being continued on Flagyl 500 mg 3 times a day. WBC 13.8. Urine culture is growing E. coli. Continued on ceftriaxone as well. No fever no chills. Patient does have nausea. No episodes of vomiting. Unable to tolerate oral diet. No complaints of chest pain or shortness of breath. 09/17/2018 Patient is still having diarrhea. Leukocytosis improved. Vancomycin by mouth will be added. Otherwise continued on ceftriaxone for urinary tract infection. Continue with supportive management. No fever no chills. Patient is generally weak and not tolerating oral diet very well. Decreased appetite. All other 14 point review of systems negative except the above. 09/18/2018 Patient says that she feels better today. Diarrhea improved but no formed stool yet. Continue with metronidazole IV and by mouth vancomycin. Ceftriaxone will be discontinued since she already finished 3 days of antibiotics. Leukocytosis resolved. Anticipate discharge tomorrow with more clinical improvement of diarrhea. Advance diet as tolerated. Patient can finish antibiotic course with vancomycin 250 mg every 6 hourly for a total of 10 days. Current medications reviewed. Objective - Vital Signs Vital signs: Vital Signs Temp 97.9 F 09/18/18 15:00 Pulse 82 09/18/18 15:41 Resp 14 09/18/18 15:00 BP 138/84 09/18/18 15:00 Pulse Ox 97 09/18/18 15:00 Intake & Output 09/17/18 09/18/18 09/18/18 18:59 06:59 18:59 Intake Total 1445 1200 200 Balance 1445 1200 200 Intake: Intake, IV Titration 725 1200 Amount Sodium Chloride 0.9% 1, 525 1200 000 ml @ 75 mls/hr IV . [id number] [facility] Rx#:[id number] cefTRIAXone 1 gm In 100 Sodium Chloride 0.9% 50 ml @ 100 mls/hr IVPB Q24H [facility] Rx#:[id number] metroNIDAZOLE-NS PMX 500 100 mg In Saline 1 100ml.bag @ 100 mls/hr IVPB Q8HR [facility] Rx#:[id number] Oral 720 200 Other: # Voids 1 1 # Bowel Movements 2 1 - Exam PHYSICAL EXAMINATION: Patient is lying in the bed comfortably, no acute distress, awake alert and oriented.. HEENT: Normocephalic. Neck is supple. Pupils reactive. Nostrils clear. Oral cavity is moist. Ears reveal no drainage. Neck reveals no JVD, carotid bruits, or thyromegaly. CHEST EXAMINATION: Trachea is central. Symmetrical expansion. Lung alas clear to auscultation and percussion. CARDIAC: Normal S1, S2 with no gallops. No murmurs ABDOMEN: Soft. Bowel sounds normal. No organomegaly. No abdominal bruits. Extremities: reveal no edema. No clubbing or cyanosis Neurologically awake, alert, oriented x3 with well-coordinated movements. No focal deficits noted Skin: No rash or skin lesions. Psychiatric: Coperative. Nonsuicidal Musculoskeletal: No joint swelling or deformity. Normal range of motion. - Labs CBC & Chem 7: 09/18/18 07:09 09/18/18 07:09 Labs: Abnormal Lab Results - Last 24 Hours (Table) 09/18/18 09/18/18 Range/Units 07:09 07:09 RBC 3.71 L (3.80-5.40) m/uL Hgb 11.0 L (11.4-16.0) gm/dL Neutrophils # 8.6 H (1.3-7.7) k/uL Chloride 109 H (98-107) mmol/L Creatinine 0.39 L (0.52-1.04) mg/dL Glucose 102 H (74-99) mg/dL Calcium 7.9 L (8.4-10.2) mg/dL Assessment and Plan Assessment: Diarrhea secondary to acute C. diff infection. Still having diarrhea. Acute urinary tract infection with gram-negative bacilli/E. coli COPD/asthma Generalized weakness and poor oral intake Hyperlipidemia Osteoarthritis History of left carotid endarterectomy Previous history of smoking DVT prophylaxis Plan: Patient will be continued on gentle hydration. Continue with metronidazole, changed to IV. Added vancomycin. Continued with ceftriaxone for urinary tract infection and follow-up final urine culture showed E. coli. Completed antibiotic course for UTI.. added questron tab. PTOT to be consulted and further recommendations based on the clinical course. Time with Patient: Greater than 30
[2018-09-19] MEDS: VANCOMYCIN ORAL SOLUTION 250 MG/5 ML BOTTLE PO SCH ×4 (01:09→17:53)
[2018-09-19] MEDS: CHERRY FLAVOR 60 ML BOTTLE PO SCH ×4 (01:09→17:53)
[2018-09-19] MEDS: metroNIDAZOLE-NS PMX 500 MG in SALINE 1 100ML.BAG IVPB SCH ×3 (01:12→15:13)
[2018-09-19] MEDS: BUDESONIDE 0.5 MG/2 ML NEBU INHALATION SCH ×2 (08:01→20:38)
[2018-09-19] MEDS: IPRATROPIUM-ALBUTEROL 3 ML NEB INHALATION SCH ×4 (08:01→20:38)
[2018-09-19] MEDS: SODIUM CHLORIDE 0.9% 1,000 ML IV SCH ×2 (10:26→14:43)
[2018-09-19] MEDS: VENLAFAXINE HCL ER 75 MG CAP PO SCH (10:27)
[2018-09-19] MEDS: LISINOPRIL 5 MG TAB PO SCH (10:27)
[2018-09-19] MEDS: MONTELUKAST 10 MG TAB PO SCH (10:27)
[2018-09-19] MEDS: PANTOPRAZOLE 40 MG TABLET PO SCH (10:27)
[2018-09-19] MEDS: CALCIUM CARB-VIT D 500MG-200UN 1 EACH TAB PO SCH (10:27)
[2018-09-19] MEDS: ASPIRIN 81 MG PO SCH (10:27)
[2018-09-19] MEDS: ENOXAPARIN 40 MG/0.4 ML SYRINGE SQ SCH (10:27)
[2018-09-19] MEDS: CHOLESTYRAMINE (WITH SUGAR) 4 GM PACKET PO SCH ×3 (10:35→17:53)
--- NOTE | 2018-09-19 14:26 | P.PN ---
Subjective Patient is a 72 old female with a known history of asthma/COPD, hyperlipidemia presents to hospital with generalized weakness and diarrhea. Patient was recently diagnosed with C. diff infection by her primary care physician was placed on oral metronidazole tablets. Patient is still having diarrhea and became weak and presents to ER. Patient also having decreased oral intake and poor appetite. No complains of chest pain or shortness of breath. No headache or dizziness or lightheadedness. Patient denied dysuria or hematuria. Urinalysis showed leukocyte esterase positive and white blood cells 29. Denied any fever or chills. WBC 13.5 Patient was on antibiotics for bronchitis 2 weeks prior. 09/16/18 Patient is still having explosive diarrhea. Potassium is low this is being replaced. Currently being continued on Flagyl 500 mg 3 times a day. WBC 13.8. Urine culture is growing E. coli. Continued on ceftriaxone as well. No fever no chills. Patient does have nausea. No episodes of vomiting. Unable to tolerate oral diet. No complaints of chest pain or shortness of breath. 09/17/2018 Patient is still having diarrhea. Leukocytosis improved. Vancomycin by mouth will be added. Otherwise continued on ceftriaxone for urinary tract infection. Continue with supportive management. No fever no chills. Patient is generally weak and not tolerating oral diet very well. Decreased appetite. All other 14 point review of systems negative except the above. 09/18/2018 Patient says that she feels better today. Diarrhea improved but no formed stool yet. Continue with metronidazole IV and by mouth vancomycin. Ceftriaxone will be discontinued since she already finished 3 days of antibiotics. Leukocytosis resolved. Anticipate discharge tomorrow with more clinical improvement of diarrhea. Advance diet as tolerated. Patient can finish antibiotic course with vancomycin 250 mg every 6 hourly for a total of 10 days. 09/19/2018 Patient presents with C. diff colitis and another tract infection secondary to susceptible E coli to many antimicrobial, finish her therapy for her UTI. Patient remains on oral vancomycin and Flagyl. PTOT: Recommended discharge patient home with no need for therapy. Leukocytosis from yesterday was within normal limits at 10.3 Patient today she is complaining of from exertional dyspnea with cough and yellow phlegm. No urinary complaints. She still have some loose bowel movement. No abdominal pain or nausea vomiting. She is tolerating diet well. Chest exam shows some scattered wheezing sacral palpitation. She is on IV fluids and normal sinus 75 blade per hour which is lower to 15 L/h. She is also on Flagyl and oral vancomycin which we'll continue with that. We'll check today's lap and order chest x-ray Objective - Vital Signs Vital signs: Vital Signs Temp 98 F 09/19/18 07:00 Pulse 77 09/19/18 11:51 Resp 18 09/19/18 08:00 BP 152/94 09/19/18 07:00 Pulse Ox 97 09/19/18 07:00 Intake & Output 09/18/18 09/19/18 09/19/18 18:59 06:59 18:59 Intake Total 596 422 Balance 596 422 Intake: Oral 596 422 Other: # Voids 1 1 1 # Bowel Movements 1 1 - Exam GENERAL: The patient is alert and oriented x3, not in any acute distress. Well developed, well nourished. HEENT: Pupils are round and equally reacting to light. EOMI. No scleral icterus. No conjunctival pallor. Normocephalic, atraumatic. No pharyngeal erythema. No thyromegaly. CARDIOVASCULAR: S1 and S2 present. No murmurs, rubs, or gallops. -PULMONARY: Chest is clear to auscultation. scattered wheezing and crackles ABDOMEN: Soft, nontender, nondistended, normoactive bowel sounds. No palpable organomegaly. MUSCULOSKELETAL: No joint swelling or deformity. EXTREMITIES: No cyanosis, clubbing, or pedal edema. NEUROLOGICAL: Gross neurological examination did not reveal any focal deficits. SKIN: No rashes. - Labs CBC & Chem 7: 09/18/18 07:09 09/18/18 07:09 Assessment and Plan Assessment: Diarrhea secondary to acute C. diff infection. Still having diarrhea. Possible acute COPD exacerbation Acute urinary tract infection with gram-negative bacilli/E. coli. Finish her therapy Generalized weakness and poor oral intake Hyperlipidemia Osteoarthritis History of left carotid endarterectomy Previous history of smoking DVT prophylaxis Plan: Patient will be continued on gentle hydration. Continue with metronidazole, changed to IV. Continue with vancomycin. ceftriaxone was already stopped for urinary tract infection and follow-up final urine culture showed E. coli. Completed antibiotic course for UTI.. added questron tab. Check chest x-ray and breathing treatment PTOT to be consulted and further recommendations based on the clinical course DVT prophylaxis, she is already on Lovenox. GI prophylaxis on Protonix Prognosis is guarded
[2018-09-19] MEDS ORDERED: predniSONE 20 MG TAB PO SCH (14:30)
--- NOTE | 2018-09-19 14:54 | XR ---
EXAMINATION TYPE: XR chest 1V DATE OF EXAM: 09/19/2018 COMPARISON: Prior chest x-ray 09/14/2018 HISTORY: Shortness of breath TECHNIQUE: Single frontal view of the chest is obtained. FINDINGS: There is no focal air space opacity, pleural effusion, or pneumothorax seen. The cardiac silhouette size is within normal limits. Hyperinflation could be indicative of underlying COPD. The osseous structures are intact. IMPRESSION: No acute process.
[2018-09-19 15:36] LABS: Basophils % (A) 0 %; Eosinophils # (A) 0.1 k/uL (0-0.7); Eosinophils % (A) 1 %; HCT 32.9 % (34.0-46.0); HGB 10.7 gm/dL (11.4-16.0); Hypochromasia Slight; Lymphocytes # (A) 0.9 k/uL (1.0-4.8); Lymphocytes % (A) 9 %; MCH 30.2 pg (25.0-35.0); MCHC 32.6 g/dL (31.0-37.0); MCV 92.5 fL (80.0-100.0); Mean Platelet Volume 7.8; Monocytes # (A) 0.4 k/uL (0-1.0); Monocytes % (A) 4 %; Neutrophils # (A) 8.3 k/uL (1.3-7.7); Neutrophils % (A) 84 %; Platelet Count 296 k/uL (150-450); RBC 3.55 m/uL (3.80-5.40); RDW 13.8 % (11.5-15.5); WBC 9.9 k/uL (3.8-10.6)
[2018-09-19 15:44] LABS: African American GFR (CKD) >90 (>60 ml/min/1.73 sqM); Anion Gap 7 mmol/L; Blood Urea Nitrogen 8 mg/dL (7-17); Calcium 8.2 mg/dL (8.4-10.2); Carbon Dioxide 27 mmol/L (22-30); Chloride 105 mmol/L (98-107); Glucose 104 mg/dL (74-99); Potassium 3.2 mmol/L (3.5-5.1); Sodium 139 mmol/L (137-145)
[2018-09-19] MEDS: POTASSIUM CHLORIDE ER 20 MEQ TAB.ER PO SCH ×2 (16:05→17:53)
[2018-09-19] MEDS ORDERED: POTASSIUM CHLORIDE ER 20 MEQ TAB.ER PO SCH (21:00)
[2018-09-19] MEDS ORDERED: POTASSIUM CHLORIDE ER 20 MEQ TAB.ER PO STA (23:30)
[2018-09-20] MEDS: VANCOMYCIN ORAL SOLUTION 250 MG/5 ML BOTTLE PO SCH ×3 (00:45→12:17)
[2018-09-20] MEDS: metroNIDAZOLE-NS PMX 500 MG in SALINE 1 100ML.BAG IVPB SCH ×2 (00:45→08:02)
[2018-09-20] MEDS: CHERRY FLAVOR 60 ML BOTTLE PO SCH ×3 (00:45→12:17)
[2018-09-20 06:09] VITALS: RESP 16
[2018-09-20] MEDS: BUDESONIDE 0.5 MG/2 ML NEBU INHALATION SCH (06:48)
[2018-09-20] MEDS: IPRATROPIUM-ALBUTEROL 3 ML NEB INHALATION SCH ×3 (06:48→15:45)
[2018-09-20] MEDS: PANTOPRAZOLE 40 MG TABLET PO SCH (08:03)
[2018-09-20 08:27] LABS: African American GFR (CKD) >90 (>60 ml/min/1.73 sqM); Anion Gap 6 mmol/L; Blood Urea Nitrogen 10 mg/dL (7-17); Calcium 8.4 mg/dL (8.4-10.2); Carbon Dioxide 28 mmol/L (22-30); Chloride 106 mmol/L (98-107); Glucose 107 mg/dL (74-99); Magnesium 1.5 mg/dL (1.6-2.3); Potassium 3.8 mmol/L (3.5-5.1); Sodium 140 mmol/L (137-145)
[2018-09-20] MEDS ORDERED: predniSONE 20 MG TAB PO SCH (09:00)
[2018-09-20] MEDS: ASPIRIN 81 MG PO SCH (09:58)
[2018-09-20] MEDS: MONTELUKAST 10 MG TAB PO SCH (09:58)
[2018-09-20] MEDS: LISINOPRIL 5 MG TAB PO SCH (09:58)
[2018-09-20] MEDS: CALCIUM CARB-VIT D 500MG-200UN 1 EACH TAB PO SCH (09:58)
[2018-09-20] MEDS: VENLAFAXINE HCL ER 75 MG CAP PO SCH (09:58)
[2018-09-20] MEDS: CHOLESTYRAMINE (WITH SUGAR) 4 GM PACKET PO SCH (09:59)
[2018-09-20] MEDS ORDERED: POTASSIUM CHLORIDE ER 20 MEQ TAB.ER PO STA (10:03)
[2018-09-20] MEDS: ENOXAPARIN 40 MG/0.4 ML SYRINGE SQ SCH (10:07)
[2018-09-20] MEDS: MAGNESIUM SULFATE-D5W PMX 1 GM in DEXTROSE/WATER 1 100ML.BAG IVPB SCH ×2 (12:18→13:33)
[2018-09-20 14:01] VITALS: BP 107/65; PULSE 73; TEMP 98.4
--- NOTE | 2018-10-07 08:18 | P.DS ---
Providers Date of admission: 09/16/18 14:23 Attending physician: Cyn Azul Primary care physician: Dedra [facility] Course: Diagnoses: Diarrhea secondary to acute C. diff infection. Improving, improving significantly Possible acute COPD exacerbation Acute urinary tract infection with gram-negative bacilli/E. coli. Finish her therapy Generalized weakness and poor oral intake. Improved Hyperlipidemia Osteoarthritis History of left carotid endarterectomy Previous history of smoking Hospital course: Patient is a 72 old female with a known history of asthma/COPD, hyperlipidemia presents to hospital with generalized weakness and diarrhea. Patient was found to have acute C. diff colitis, she was treated with oral vancomycin and Flagyl. Patient showed interval improvement and on the day of discharge her bowel movement is 3-4 semisolids with no abdominal pain or nausea vomiting and she is tolerating diet well. Also her hospital course has been complicated by UTI which is been treated with 3 days of antibiotics. Also she developed like acute COPD exacerbation which is resolved with therapy of bronchodilators and steroids, and her breathing came back to her baseline, cough is significantly improved. On the day of discharge her fever resolved for more than 48 hours, no leukocytosis. Patient denies chest pain. Patient showed interval improvement and she is back close to her baseline, tolerating diet well with no abdominal pain or nausea vomiting. Patient feels she can go home today. Patient will be discharged on 10 more days of oral vancomycin and short taper of steroids. Physical therapy evaluation recommended home with no therapy Problems and management plan were discussed with the patient and he verbalized understanding and acceptance Patient was found stable and can be discharged home however he needs follow-up as an outpatient. Patient was instructed to follow up with her PCP within one week, she agrees and she wants to make her own appointment Gen: patient is a AAOx3, no distress CVS: S1-S2, RRR, no murmur Lungs: B/L CTA, no wheezing Abdomen: soft, no distention, no tenderness, positive bowel sounds Extremity: no leg edema or induration Time spent more than 35 minutes Patient Condition at Discharge: Fair Plan - Discharge Summary New Discharge Prescriptions: New Magnesium Oxide [Mag-Ox] 400 mg PO DAILY #5 tablet predniSONE 10 mg PO DIRECTED #6 tab Pantoprazole Sodium [Protonix] 40 mg PO DAILY #15 tablet. Cholestyramine (with Sugar) [Questran Packet] 4 gm PO TID BETWEEN MEALS 2 Days #6 packet Vancomycin Oral Solution 250 mg PO Q6HR 10 Days #20 ml Continue Simvastatin [Zocor] 20 mg PO DAILY Montelukast Sodium [Singulair] 10 mg PO DAILY Calcium Carbonate/Vitamin D3 [Calcium 600-Vit D3 400 Tablet] 1 each PO DAILY Lisinopril [Zestril] 5 mg PO DAILY Venlafaxine HCl [Effexor XR] 75 mg PO DAILY Turmeric Root Extract [Turmeric] 500 mg PO DAILY Multivitamins, Thera [Multivitamin (formulary)] 1 tab PO DAILY Ipratropium-Albuterol Nebulize [Duoneb 0.5 mg-3 mg/3 ml Soln] 3 ml INHALATION RT-QID Budesonide [Pulmicort] 0.5 mg INHALATION RT-QID Aspirin [[place] Aspirin EC] 81 mg PO DAILY Acetaminophen Tab [Tylenol] 1,500 mg PO BID Discontinued metroNIDAZOLE [Flagyl] 500 mg PO Q8HR Discharge Medication List Calcium Carbonate/Vitamin D3 [Calcium 600-Vit D3 400 Tablet] 1 each PO DAILY 06/05/14 [History] Montelukast Sodium [Singulair] 10 mg PO DAILY 06/05/14 [History] Simvastatin [Zocor] 20 mg PO DAILY 06/05/14 [History] Lisinopril [Zestril] 5 mg PO DAILY 07/25/18 [History] Venlafaxine HCl [Effexor XR] 75 mg PO DAILY 07/25/18 [History] Acetaminophen Tab [Tylenol] 1,500 mg PO BID 09/14/18 [History] Aspirin [[place] Aspirin EC] 81 mg PO DAILY 09/14/18 [History] Budesonide [Pulmicort] 0.5 mg INHALATION RT-QID 09/14/18 [History] Ipratropium-Albuterol Nebulize [Duoneb 0.5 mg-3 mg/3 ml Soln] 3 ml INHALATION RT-QID 09/14/18 [History] Multivitamins, Thera [Multivitamin (formulary)] 1 tab PO DAILY 09/14/18 [History] Turmeric Root Extract [Turmeric] 500 mg PO DAILY 09/14/18 [History] Cholestyramine (with Sugar) [Questran Packet] 4 gm PO TID BETWEEN MEALS 2 Days #6 packet 09/20/18 [Rx] Magnesium Oxide [Mag-Ox] 400 mg PO DAILY #5 tablet 09/20/18 [Rx] Pantoprazole Sodium [Protonix] 40 mg PO DAILY #15 tablet. 09/20/18 [Rx] Vancomycin Oral Solution 250 mg PO Q6HR 10 Days #20 ml 09/20/18 [Rx] predniSONE 10 mg PO DIRECTED #6 tab 09/20/18 [Rx] Follow up Appointment(s)/Referral(s): Dedra Teague MD [Primary Care Provider] - 1-2 days Activity/Diet/Wound Care/Special Instructions: resume your previous diet, also increase (Yogurt , cheese, fruit and vegetable in your diet ) increase fluid intake activity is limited till you see your doctor Discharge Disposition: HOME SELF-CARE
== END 2018-09-20 16:26 | disposition home or self-care (01) | DRG 372 ==
LOC: EC 16:36 → 4SSUR 20:13 → OBSVTOIN 09-16 14:23
PROVIDERS: ADMIT Hospitalist; ATTEND Hospitalist
DX: A04.72 Enterocolitis due to Clostridium difficile, not specified as recurrent (principal); N39.0 Urinary tract infection, site not specified; J44.1 Chronic obstructive pulmonary disease with (acute) exacerbation; E86.0 Dehydration; J44.9 Chronic obstructive pulmonary disease, unspecified; E78.5 Hyperlipidemia, unspecified; R63.0 Anorexia; Z90.710 Acquired absence of both cervix and uterus; Z87.891 Personal history of nicotine dependence; Z80.8 Family history of malignant neoplasm of other organs or systems; Z80.3 Family history of malignant neoplasm of breast; Z79.899 Other long term (current) drug therapy; Z79.82 Long term (current) use of aspirin; M19.90 Unspecified osteoarthritis, unspecified site; B96.20 Unspecified Escherichia coli [E. coli] as the cause of diseases classified elsewhere; Z88.1 Allergy status to other antibiotic agents; Z88.5 Allergy status to narcotic agent; Z91.048 Other nonmedicinal substance allergy status; Z98.42 Cataract extraction status, left eye; Z98.41 Cataract extraction status, right eye
CPT/HCPCS: 36415; 71045; 71046; 80048; 80053; 81001; 83605; 83735; 84100; 84132; 84484; 85025; 85610; 85730; 87077; 87086; 87186; 93005; 94640; 94760; 96361; 96374; 99285

== ENCOUNTER → 2019-12-22 | Outpatient (CLI) | payer MEDICARE, BC ==
--- NOTE | 2019-12-22 14:59 | US ---
EXAMINATION TYPE: US pelvis complete transvag DATE OF EXAM: 12/22/2019 COMPARISON: NONE CLINICAL HISTORY: R10.31 R10.32. hysterectomy, pain in pelvis when constipated TECHNIQUE: TA/TV. Transabdominal sonographic images of the pelvis were acquired. Transvaginal sono graphic images Date of LMP: 40 years ago EXAM MEASUREMENTS: Uterus: Surgically absent Endometrial Stripe: Surgically absent Right Ovary: not seen Left Ovary: not seen 1. Uterus: Surgically absent 2. Endometrium: Surgically absent 3. Right Ovary: Obscured by overlying bowel gas and or atrophy 4. Left Ovary: Obscured by overlying bowel gas and or atrophy 5. Bilateral Adnexa: wnl 6. Posterior cul-de-sac: wnl IMPRESSION: No distinct abnormality seen.
== END | disposition home or self-care (01) ==
LOC: RADUSWWP 14:21
PROVIDERS: ATTEND Internal Medicine
DX: R10.31 Right lower quadrant pain (principal); R10.32 Left lower quadrant pain
CPT/HCPCS: 76830; 76856

== ENCOUNTER 2020-01-05 09:10 | Day surgery (SDC) | payer MEDICARE, BC ==
[2020-01-02 15:29] VITALS: BMI 29.0
[2020-01-05 09:29] VITALS: TEMP 97.2
[2020-01-05] MEDS: LACTATED RINGERS 1,000 ML IV SCH ×2 (09:42→09:49)
[2020-01-05] MEDS ORDERED: LIDOCAINE 1% INJ 10MG/ML (20 ML MDV) ONE (09:56)
[2020-01-05] MEDS ORDERED: PROPOFOL 10 MG/ML 20 ML VIAL IV ONE (09:56)
--- NOTE | 2020-01-05 10:10 | P.PCN ---
Date of Procedure: 01/05/20 Procedure(s) Performed: BRIEF HISTORY: Patient is a 69-year-old, pleasant, 8 female scheduled for an upper endoscopy for evaluation of severe heartburn and intermittent dysphagia to solids for the last 6 months duration. She was treated with omeprazole in the past and developed C. diff colitis. Medications. He takes Tums as needed.. PROCEDURE PERFORMED: Esophagogastroduodenoscopy with biopsy. PREOPERATIVE DIAGNOSIS: Severe heartburn and intermittent dysphagia to solids for the last 6 months duration. IV sedation per anesthesia. PROCEDURE: After informed consent was obtained, the patient was brought into the endoscopy unit. IV sedation was administered by Anesthesia under continuous monitoring. Initially the Olympus GIF-140 video endoscope was inserted into the mouth. Esophagus intubated without any difficulty. It was gradually advanced into the stomach and duodenum and carefully examined. The bulb and the second part of the duodenum appeared normal. The scope at this time was withdrawn to the stomach, adequately insufflated with air, and upon careful examination, mucosa of the antrum, had several scattered erosions and biopsies were done from this area. The body, cardia and the fundus appeared normal. The scope was then withdrawn into the esophagus. The GE junction was located at 37 cm from the incisors. Small to moderate size hiatal hernia noted. At the GE junction there was severe erythema and 1 superficial ulceration and linear erosions consistent with LA grade C reflux esophagitis. Also there was an area just above the GE junction appeared very erythematous and salmon-colored and biopsies were done to evaluate for Bill's esophagus. There was early distal esophageal stricture identified. The rest of the esophagus appeared normal. Patient tolerated the procedure well. IMPRESSION: 1. Linear erosions with one superficial ulceration in the distal esophagus consistent with LA grade C reflux esophagitis. 2. Early distal esophageal stricture with severe esophagitis. 3. Small hiatal hernia 4. Antral erosive gastritis RECOMMENDATIONS: The findings of this examination were discussed with the patient as well as her family. She was advised to follow with the biopsy results. She would benefit from PPI therapy because of severe reflux esophagitis but because of the prior history of C. diff colitis she is very concerned about this. I suggested that she start on Pepcid 20 mg twice daily and follow antireflux measures. She will follow up in office in 6 weeks and base of the symptoms will decide further..
[2020-01-05 10:41] VITALS: BP 126/79; PULSE 77; RESP 18
== END 2020-01-05 11:18 | disposition home or self-care (01) ==
LOC: ORWHC2ENDO 09:10
PROVIDERS: ATTEND Internal Medicine Gastroenterology
DX: K22.10 Ulcer of esophagus without bleeding (principal); K22.2 Esophageal obstruction; K21.00 Gastro-esophageal reflux disease with esophagitis, without bleeding; K44.9 Diaphragmatic hernia without obstruction or gangrene; K29.50 Unspecified chronic gastritis without bleeding; J44.9 Chronic obstructive pulmonary disease, unspecified; K08.89 Other specified disorders of teeth and supporting structures; I10 Essential (primary) hypertension; E78.5 Hyperlipidemia, unspecified; Z86.19 Personal history of other infectious and parasitic diseases; Z79.1 Long term (current) use of non-steroidal anti-inflammatories (NSAID); Z79.899 Other long term (current) drug therapy; Z79.51 Long term (current) use of inhaled steroids; Z85.118 Personal history of other malignant neoplasm of bronchus and lung; Z87.891 Personal history of nicotine dependence; Z90.710 Acquired absence of both cervix and uterus
CPT/HCPCS: 88305; 88312; 43239; J2001; J2704

== ENCOUNTER → 2020-03-11 | Outpatient (CLI) | payer MEDICARE, BC ==
--- NOTE | 2020-03-11 15:40 | BD ---
EXAMINATION TYPE: Axial Bone Density DATE OF EXAM: 03/11/2020 COMPARISON: NONE CLINICAL HISTORY: Height: 65 Weight: 185.7 FRAX RISK QUESTIONS: Alcohol (3 or more units per day): no Family History (Parent hip fracture): no Glucocorticoids (More than 3mos): no (Ex: prednisone, prednisolone, methylprednisolone, dexamethasone, and hydrocortisone). History of Fracture in Adulthood: yes Secondary Osteoporosis: 1. Type 1 Diabetes: no 2. Hyperthyroidism: no 3. Menopause before 45: no 4. Malnutrition: no 5. Chronic liver disease: no Rheumatoid Arthritis: no Current Tobacco Use: no RISK FACTORS HISTORY OF: Surgery to Spine/Hip(right/left)/Wrist (right/left): no Family History of Osteoporosis: yes Active: yes Diet low in dairy products/other sources of calcium: no Postmenopausal woman: hysterectomy 1988 Lost more than 2 inches in height since high school: no MEDICATIONS: osteoporosis med 1 year ago, simvastatin, nerve meds, monolucast Additional History: EXAM MEASUREMENTS: Bone mineral densitometry was performed using the [employer]. Bone mineral density as measured about the Lumbar spine is: ----- L1-L4(G/cm2): 1.318 T Score Values are as follows: ----- L2: 0.2 ----- L3: 1.8 ----- L4: 1.8 ----- L1-L4: 1.1 Bone mineral density has: DECREASED -0.7 % since study of: 03.09.2018 Bone mineral density about the R hip (g/cm2): 0.771 Bone mineral density about the L hip (g/cm2): 0.874 T Score values are as follows: -----R Neck: -1.9 -----L Neck: -1.2 -----R Total: -1.1 -----L Total: -1.3 Bone mineral density has: INCREASED 2.8 % since study of: 03.09.2018 IMPRESSION: Osteopenia NOTE: T-SCORE=SD OF THE YOUNG ADULT MEAN.
== END | disposition home or self-care (01) ==
LOC: RADBDWWP 12:34
PROVIDERS: ATTEND Internal Medicine
DX: M85.80 Other specified disorders of bone density and structure, unspecified site (principal); Z13.820 Encounter for screening for osteoporosis
CPT/HCPCS: 77080

== ENCOUNTER → 2020-05-03 | Outpatient (CLI) | payer MEDICARE, BC ==
--- NOTE | 2020-05-03 11:29 | XR ---
EXAMINATION TYPE: XR chest 2V DATE OF EXAM: 05/03/2020 COMPARISON: 09/19/2018 HISTORY: Shortness of breath TECHNIQUE: Frontal and lateral views of the chest are obtained. FINDINGS: Scattered senescent parenchymal changes noted. Hyperinflation compatible with COPD. Patchy density right lower lobe medially correlate clinically and progress studies are recommended Heart size is stable. Mediastinal structures are stable and grossly unremarkable. No evidence for hilar prominence. Degenerative changes dorsal spine. IMPRESSION: 1. Patchy density right lower lobe medially correlate clinically and progress studies are recommended
== END | disposition home or self-care (01) ==
LOC: RADXRMAIN 10:57
PROVIDERS: ATTEND Internal Medicine
DX: R05 Cough (principal); R06.02 Shortness of breath
CPT/HCPCS: 71046

== ENCOUNTER → 2020-07-04 | Outpatient (CLI) | payer MEDICARE, BC ==
--- NOTE | 2020-07-04 12:44 | XR ---
EXAMINATION TYPE: XR chest 2V DATE OF EXAM: 07/04/2020 COMPARISON: 05/03/2020 INDICATION: Fever, cough TECHNIQUE: Single frontal view of the chest is obtained. FINDINGS: The heart size is normal. The pulmonary vasculature is normal. The lungs are clear. Mild hyperinflation may be present. Correlate for emphysematous change IMPRESSION: 1. No acute pulmonary process. Emphysema may be present.
== END | disposition home or self-care (01) ==
LOC: RADXRMAIN 10:44
PROVIDERS: ATTEND Internal Medicine
DX: R05 Cough (principal); R50.9 Fever, unspecified
CPT/HCPCS: 71046; 87070; 87205

== ENCOUNTER → 2020-07-15 | Outpatient (CLI) | payer MEDICARE, BC ==
[2020-07-15 13:46] LABS: Appearance,Urine Clear (Clear); Bilirubin,Urine Negative (Negative); Blood,Urine Negative (Negative); Color,Urine Yellow; Glucose,Urine (UA) Negative (Negative); Ketones,Urine Negative (Negative); Leukocyte Esterase,Urine Negative (Negative); Nitrite,Urine Negative (Negative); PH, Urine 5.5 (5.0-8.0); Protein,Urine Trace (Negative); Specific Gravity,Urine 1.027 (1.001-1.035); Urobilinogen,Urine <2.0 mg/dL (<2.0)
== END | disposition home or self-care (01) ==
LOC: LABWHC1 11:39
PROVIDERS: ATTEND Internal Medicine
DX: R35.0 Frequency of micturition (principal)
CPT/HCPCS: 81003; 87086

== ENCOUNTER → 2020-07-30 | Outpatient (CLI) | payer MEDICARE, BC ==
[2020-07-30 09:43] LABS: HCT 42.6 % (34.0-46.0); HGB 13.8 gm/dL (11.4-16.0); MCHC 32.5 g/dL (31.0-37.0); MCV 95.4 fL (80.0-100.0); Mean Platelet Volume 6.5; Platelet Count 251 k/uL (150-450); RBC 4.47 m/uL (3.80-5.40); RDW 13.6 % (11.5-15.5); WBC 8.3 k/uL (3.8-10.6)
[2020-07-30 10:01] LABS: ALT 22 U/L (4-34); AST 30 U/L (14-36); African American GFR (CKD) >90 (>60 ml/min/1.73 sqM); Albumin 4.8 g/dL (3.5-5.0); Alkaline Phosphatase 42 U/L (38-126); Anion Gap 9 mmol/L; Blood Urea Nitrogen 27 mg/dL (7-17); Calcium 9.7 mg/dL (8.4-10.2); Carbon Dioxide 26 mmol/L (22-30); Chloride 104 mmol/L (98-107); Cholesterol 174 mg/dL (<200); Glucose 104 mg/dL (74-99); HDL Cholesterol 68 mg/dL (40-60); LDL Cholesterol,Calculated 84 mg/dL (0-99); Non-African American GFR(CKD) >90 (>60 ml/min/1.73 sqM); Potassium 4.8 mmol/L (3.5-5.1); Sodium 139 mmol/L (137-145); Total Bilirubin 0.6 mg/dL (0.2-1.3); Total Protein 7.8 g/dL (6.3-8.2); Triglycerides 112 mg/dL (<150)
--- NOTE | 2020-07-30 15:57 | CT ---
EXAMINATION TYPE: CT chest w con DATE OF EXAM: 07/30/2020 COMPARISON: 02/25/2016 HISTORY: COPD follow up, cough CT DLP: 380.6 mGycm, Automated exposure control for dose reduction was used. CONTRAST: Performed injected with 100 mL of Isovue 300. TECHNIQUE: Axial images were obtained at 5 mm thick sections. Reconstructed images are reviewed on [employer] computer in the coronal plane. FINDINGS: Portion of the thyroid visualized is normal. No suspicious lung nodules or focal infiltrates are present. Extensive emphysematous changes are pres ent. There is a 0.4 cm area of increased density with indistinct margins posterior lateral right apex . Series 4 image 14. This is a new finding. Neoplasm is not excluded. Previous left upper lobe nodule is not identified. The area of thickening in the posterior right lower lobe appears smaller than the comparison. No enlarged mediastinal or hilar adenopathy is evident. The ascending aorta diameter at the level o f the main pulmonary artery is 3.3 cm. The main pulmonary artery diameter at the bifurcation is 2.[address] sections are obtained through the upper abdomen. Abdomen is essentially unremarkable. IMPRESSIONS: 1. New 0.4 cm area of increased density right lateral apex. Metastatic lesion cannot be excluded. 2. Remaining lung findings are stable or diminished. 3. Extensive emphysematous change
== END | disposition home or self-care (01) ==
LOC: RADCTMAIN 08:46
PROVIDERS: ATTEND Internal Medicine Pulmonary Disease
DX: J43.9 Emphysema, unspecified (principal); R91.8 Other nonspecific abnormal finding of lung field
CPT/HCPCS: 80061; 80053; 82607; 84443; 85027; 82306; 71260; 36415; Q9967

== ENCOUNTER → 2020-11-27 | Outpatient (CLI) | payer MEDICARE, BC ==
[2020-11-28 02:28] LABS: Chol/HDL Ratio 2.66; LDL Cholesterol,Calculated 91.2 mg/dL (0.0-131.0); VLDL Calculation 19.8 mg/dL (5.00-40.00)
== END | disposition home or self-care (01) ==
LOC: LABWHC1 10:25
PROVIDERS: ATTEND Internal Medicine
DX: E78.5 Hyperlipidemia, unspecified (principal)
CPT/HCPCS: 36415; 80061

== ENCOUNTER → 2020-12-25 | Outpatient (CLI) | payer MEDICARE, BC ==
--- NOTE | 2020-12-26 17:03 | ECHOF ---
Referral Reason:I77.9 coronary artery disease MEASUREMENTS -------- HEIGHT: 167.6 cm WEIGHT: 83.9 kg BP: IVSd: 1.4 cm (0.6 - 1.1) LVIDd: 3.3 cm (3.9 - 5.3) LVPWd: 1.4 cm (0.6 - 1.1) IVSs: 1.4 cm LVIDs: 2.1 cm LVPWs: 1.9 cm Ao Diam: 2.9 cm (2.0 - 3.7) AV Cusp: 1.6 cm (1.5 - 2.6) MV EXCURSION: 14.324 mm (> 18.000) MV EF SLOPE: 86 mm/s (70 - 150) MV E Diogo: 0.71 m/s MV DecT: 180 ms MV A Diogo: 1.02 m/s MV E/A Ratio: 0.69 RAP: 5.00 mmHg RVSP: 33.45 mmHg FINDINGS -------- Sinus rhythm. This was a technically difficult study with suboptimal views. The left ventricular size is normal. There is moderate concentric left ventricular hypertrophy. O verall left ventricular systolic function is low-normal with, an EF between 50 - 55 %. The RV was not well visualized. The left atrium was not well visualized. The right atrium was not well visualized. 5.0mg of Lumason was utilized for enhancement of images The aortic valve was not well visualized. There is no evidence of aortic regurgitation. There is no evidence of aortic stenosis. The mitral valve was not well visualized. Mild mitral regurgitation is present. The tricuspid valve was not well visualized. Mild tricuspid regurgitation present. The right vent ricular systolic pressure, as measured by Doppler, is 33.45mmHg. The pulmonic valve was not well visualized. IVC Not well visulized. There is no pericardial effusion. CONCLUSIONS -------- 1. The left ventricular size is normal. 2. There is moderate concentric left ventricular hypertrophy. 3. Overall left ventricular systolic function is low-normal with, an EF between 50 - 55 %. 4. Mild mitral regurgitation is present. 5. Mild tricuspid regurgitation present. [employer] ADMINISTRATOR: Megan Jose [facility]
== END | disposition home or self-care (01) ==
LOC: RADECHMAIN 13:01
PROVIDERS: ATTEND Internal Medicine
DX: I08.1 Rheumatic disorders of both mitral and tricuspid valves (principal)
CPT/HCPCS: C8929; Q9950; 93306

== ENCOUNTER → 2023-02-23 | Outpatient (CLI) | payer MEDICARE, BC ==
[2023-02-23 13:18] LABS: African American GFR (CKD) 60 (>60 ml/min/1.73 sqM); Blood Urea Nitrogen 33 mg/dL (7-17); Non-African American GFR(CKD) 52 (>60 ml/min/1.73 sqM)
--- NOTE | 2023-02-23 14:16 | CT ---
EXAMINATION TYPE: CT chest wo con DATE OF EXAM: 02/23/2023 COMPARISON: 07/30/2020 HISTORY: lung ca CT DLP: 241.[address] of the chest was performed with lung and mediastinal window settings submitted. The la ck of contrast limits evaluation of the vascular, mediastinal and parenchymal structures including th e upper abdomen. LUNGS: Severe emphysematous changes are redemonstrated. Groundglass parenchymal density measuring 1.2 cm right upper lobe image 23 is new. There is additional pleural parenchymal opacity right infrahila r region right lower lobe image 28 difficult to measure. Additional infiltrate right medial lung base is also new with mass component measuring 2.2 x 1.5 cm. Linear parenchymal scarring. The left lung d emonstrates mild upper lobe parenchymal scarring. MEDIASTINUM/JOSE LUIS: Thoracic aorta is of normal caliber with limited evaluation given lack of contrast . The heart is not enlarged. No evidence for mediastinal mass. No lymph nodes greater than 1cm. UPPER ABDOMEN: No significant abnormality is seen. OTHER: No significant other abnormality. IMPRESSION: 1. Severe emphysematous change redemonstrated. 2. New masslike density right lower lobe. Correlate with PET/CT. Additional scattered areas of nonspe cific ground glass nodular infiltrate. Neoplasm is not excluded.
--- NOTE | 2023-02-23 14:22 | CT ---
EXAMINATION TYPE: CT neck chest w con DATE OF EXAM: 02/23/2023 COMPARISON: HISTORY: throat pain, hx of lung ca CT DLP: 571.8 mGycm Automated exposure control for dose reduction was used. CONTRAST: CT scan of the chest is performed with IV Contrast, patient injected with 100 mL of Isovue 300. LUNGS: Severe emphysematous changes are redemonstrated. Groundglass parenchymal density measuring 1.2 cm right upper lobe image 23 is new. There is additional pleural parenchymal opacity right infrahila r region right lower lobe image 28 difficult to measure. Additional infiltrate right medial lung base is also new with mass component measuring 2.2 x 1.5 cm. Linear parenchymal scarring. The left lung d emonstrates mild upper lobe parenchymal scarring. MEDIASTINUM/JOSE LUIS: Thoracic aorta is of normal caliber with limited evaluation given lack of contrast . The heart is not enlarged. No evidence for mediastinal mass. No lymph nodes greater than 1cm. UPPER ABDOMEN: No significant abnormality is seen. OTHER: No significant other abnormality. IMPRESSION: 1. Severe emphysematous change redemonstrated. 2. New masslike density right lower lobe. Correlate with PET/CT. Additional scattered areas of nonspe cific ground glass nodular infiltrate. Neoplasm is not excluded. EXAMINATION TYPE: CT neck chest w con DATE OF EXAM: 02/23/2023 COMPARISON: None HISTORY: throat pain, hx of lung ca CT DLP: 571.8 mGycm CONTRAST: CT scan of the neck is performed with IV Contrast, patient injected with 100 mL of Isovue 300. Contrast enhanced CT of the neck was performed from the skull base through the lung apices. AIRWAY: The supraglottic, glottic, and subglottic portions of the airway appear patent and free of mass. SALIVARY GLANDS: The submandibular and parotid glands are free of mass or inflammatory process. THYROID GLAND: No nodules or masses seen. LYMPH NODES: No adenopathy seen greater than 1cm. LUNG APICES: No nodule or mass is seen. OTHER: Vascular structures are patent. No significant degenerative change of the cervical spine. N o abscess seen. IMPRESSION: No distinct mass appreciated.
== END | disposition home or self-care (01) ==
LOC: RADCTMAIN 12:40
PROVIDERS: ATTEND Otolaryngology
DX: J43.9 Emphysema, unspecified (principal); Z13.9 Encounter for screening, unspecified; J38.01 Paralysis of vocal cords and larynx, unilateral; J44.9 Chronic obstructive pulmonary disease, unspecified; R91.8 Other nonspecific abnormal finding of lung field; Z85.118 Personal history of other malignant neoplasm of bronchus and lung
CPT/HCPCS: 82565; 84520; 70491; 71250; 71260; 36415; Q9967

== ENCOUNTER → 2023-03-18 | Outpatient (CLI) | payer MEDICARE, BC ==
--- NOTE | 2023-03-21 09:30 | PE ---
EXAMINATION TYPE: PET CT fusion skull to thigh DATE OF EXAM: 03/18/2023 CLINICAL INDICATION:Female, 77 years old with history of C34.31 LUNG CANCER; TECHNIQUE: Following the intravenous administration of 8.19 mCi of F-18 FDG, whole body images are performed from the skull base to the midthigh. Images are reviewed on the computer in the coronal, a xial, and sagittal planes. Reconstructed rotating images are created on independent workstation and reviewed on the computer. A non-contrast CT is performed in conjunction with the PET scan. Glucose level 105 mg/dL CT DLP: 624 mGycm, Automated exposure control for dose reduction was used. COMPARISON: CT 02/23/2023, 08/26/2015, PET/CT None, FINDINGS: Mediastinal SUV mean is 2.2. Hepatic parenchyma SUV mean is 3.3. SKULL BASE AND NECK: No suspicious radiotracer activity. CHEST, MEDIASTINUM, AND HILAR REGION: No suspicious radiotracer activity. Masslike area within the right lower lobe is felt to represent st reaky atelectasis/scarring. Uptake within this region max SUV 2.5. ABDOMEN AND PELVIS: No suspicious radiotracer activity. MUSCULOSKELETAL STRUCTURES: No suspicious radiotracer activity. OTHER CT: Bilaterally aphakia. Atherosclerosis at the carotid bifurcations, the coronary arteries and arterial vasculature. Bilateral fat-containing inguinal hernias. Severe emphysema changes in the mason gs with scattered streaky atelectasis/scarring. IMPRESSION: No suspicious radiotracer activity. Right lower lobe masslike opacity seen on prior pets is felt to r epresent atelectasis and/or scarring. Uptake is at near background levels. Consider surveillance with CT.
== END | disposition home or self-care (01) ==
LOC: RADPETMAIN 11:38
PROVIDERS: ATTEND Internal Medicine Hematology & Oncology
DX: C34.31 Malignant neoplasm of lower lobe, right bronchus or lung (principal); R91.8 Other nonspecific abnormal finding of lung field
CPT/HCPCS: 78815; A9552

== ENCOUNTER 2024-07-27 17:31 | Inpatient (IN) | payer MEDICARE, BC ==
[2024-07-27 18:47] LABS: Basophils # (A) 0.02 10*3/uL (0.00-0.10); Basophils % (A) 0.3 %; Eosinophils # (A) 0.21 10*3/uL (0.04-0.35); Eosinophils % (A) 2.9 %; HCT 42.4 % (37.2-46.3); HGB 13.6 g/dL (12.0-15.0); Lymphocytes # (A) 1.24 10*3/uL (0.90-5.00); Lymphocytes % (A) 17.2 %; MCH 30.2 pg (27.0-32.0); MCHC 32.1 g/dL (32.0-37.0); Mean Platelet Volume 9.2 fL (9.5-12.2); Monocytes # (A) 0.47 10*3/uL (0.20-1.00); Monocytes % (A) 6.5 %; Neutrophils # (A) 5.27 10*3/uL (1.80-7.70); Neutrophils % (A) 72.8 %; Platelet Count 257 10*3/uL (140-440); RBC 4.51 10*6/uL (4.10-5.20); RDW 14.4 % (11.5-14.5); WBC 7.23 10*3/uL (4.50-10.00)
[2024-07-27 18:56] LABS: Appearance,Urine Clear (Clear); Bacteria,Urine Rare /hpf; Bilirubin,Urine Negative (Negative); Blood,Urine Negative (Negative); Color,Urine Colorless; Glucose,Urine (UA) Negative (Negative); Ketones,Urine Negative (Negative); Leukocyte Esterase,Urine Moderate (Negative); Mucus,Urine Rare /hpf; Nitrite,Urine Negative (Negative); PH, Urine 5.5 (5.0-8.0); Protein,Urine Negative (Negative); RBC,Urine 3 /hpf (0-5); Specific Gravity,Urine 1.017 (1.001-1.035); Squamous Epithelial Cell,Urine <1 /hpf (0-4); Urobilinogen,Urine <2.0 mg/dL (<2.0); WBC,Urine 53 /hpf (0-5)
[2024-07-27 19:12] LABS: ALT 18 U/L (4-34); AST 27 U/L (14-36); African American GFR (CKD) >90 (>60 ml/min/1.73 sqM); Albumin 4.5 g/dL (3.5-5.0); Alkaline Phosphatase 46 U/L (38-126); Anion Gap 12 mmol/L; Blood Urea Nitrogen 26 mg/dL (7-17); C Reactive Protein 0.7 mg/dL (<1.0); Carbon Dioxide 26 mmol/L (22-30); Chloride 103 mmol/L (98-107); Glucose 94 mg/dL (74-99); Non-African American GFR(CKD) 81 (>60 ml/min/1.73 sqM); Potassium 4.7 mmol/L (3.5-5.1); Sodium 141 mmol/L (137-145); Total Bilirubin 0.4 mg/dL (0.2-1.3); Total Protein 7.2 g/dL (6.3-8.2)
--- NOTE | 2024-07-27 19:18 | ED ---
General Adult HPI - General Chief complaint: Urogenital Stated complaint: Abn labs Time Seen by Provider: 07/27/24 17:54 Source: patient, family Mode of arrival: ambulatory Limitations: no limitations - History of Present Illness Initial comments: Patient is a 78-year-old female past medical history COPD, C. difficile colitis, presenting today for UTI resistant to oral antibiotics. Patient has been having suprapubic discomfort, dysuria and itching. She had a urinalysis obtained by her primary care provider last week and she was called today and told that it was resistant to oral antibiotics and she would require IV antibiotics. Pt denies fevers or chills, chest pain, nausea, vomiting or diarrhea. - Related Data Home Medications Medication Instructions Recorded Confirmed Montelukast Sodium [Singulair] 10 mg PO DAILY 06/05/14 07/27/24 Simvastatin [Zocor] 20 mg PO DAILY 06/05/14 07/27/24 Acetaminophen Tab [Tylenol] 1,000 mg PO QID PRN 09/14/18 07/27/24 L.acidoph,Paracasei, B.lactis 1 cap PO DAILY 01/02/20 07/27/24 [Probiotic] Allergy Eye Drops Otc(Unknown) 1 drop BOTH EYES DAILY PRN 07/27/24 07/27/24 Cetirizine HCl [Zyrtec] 10 mg PO DAILY 07/27/24 07/27/24 Co Q-10(Unknown Dose) 1 tab PO DAILY 07/27/24 07/27/24 Fluticasone Nasal [place] [Flonase 1 spr EA NOSTRIL DAILY 07/27/24 07/27/24 Nasal [place]] Fluticasone/Umeclidin/Vilanter 1 puff INHALATION RT-DAILY 07/27/24 07/27/24 [Trelegy Ellipta 200-62.5-25] Ibuprofen [Motrin Ib] 600 mg PO Q6H PRN 07/27/24 07/27/24 Levalbuterol Nebulized [Xopenex 1.25 mg INHALATION RT-TID 07/27/24 07/27/24 Nebulized] Omeprazole 40 mg PO DAILY 07/27/24 07/27/24 Roflumilast [Daliresp] 500 mcg PO DAILY 07/27/24 07/27/24 Venlafaxine HCl ER [Effexor Xr] 37.5 mg PO DAILY 07/27/24 07/27/24 guaiFENesin [Mucinex] 600 mg PO BID PRN 07/27/24 07/27/24 predniSONE 2.5 mg PO DAILY 07/27/24 07/27/24 predniSONE 10 mg PO DAILY 07/27/24 07/27/24 Allergies Allergy/AdvReac Type Severity Reaction Status Date / Time adhesive tape Allergy blisters,pulls Verified 07/27/24 21:25 skin off cephalexin monohydrate Allergy Unknown Verified 07/27/24 21:25 [From Keflex] codeine AdvReac Nausea Verified 07/27/24 21:25 METAL Allergy Swelling Uncoded 07/27/24 21:25 Review of Systems ROS Statement: Those systems with pertinent positive or pertinent negative responses have been documented in the HPI. ROS Other: All systems not noted in ROS Statement are negative. Past Medical History Past Medical History: Asthma, Cancer, COPD, Hyperlipidemia, Pneumonia Additional Past Medical History / Comment(s): Hx. arthritis History of Any Multi-Drug Resistant Organisms: ESBL Date of last positivie culture/infection: 07/21/24 MDRO Source:: Urine Past Surgical History: Orthopedic Surgery Additional Past Surgical History / Comment(s): Hx. cataracts removed - bilat Hx.left carotid endart 2-3 yrs ago Hx. partial hyster 1988 Hx 1970rt ankle surgery after falling (5 operations) after 2.5 yrs Past Anesthesia/Blood Transfusion Reactions: No Reported Reaction Past Psychological History: No Psychological Hx Reported Past Alcohol Use History: Rare - Past Family History Father Family Medical History: Cancer Additional Family Medical History / Comment(s): skin cancer Mother Additional Family Medical History / Comment(s): bedridden with arthritis Sister(s) Family Medical History: Cancer Additional Family Medical History / Comment(s): . Brother(s) Family Medical History: Cancer, Deep Vein Thrombosis (DVT), Pulmonary Embolus Additional Family Medical History / Comment(s): . General Exam - General Exam Comments Initial Comments: PE: CONSTITUTIONAL: No apparent distress, well appearing SKIN: Warm, dry, no jaundice, hives or petechiae EYES: Pupils are equally round, extraocular movements intact without nystagmus, clear conjunctiva, non-icteric sclera HENT: Normocephalic, atraumatic, moist mucus membranes, oropharynx clear without exudates NECK: , Full range of motion, normal appearance PULMONARY: Clear to auscultation without wheezes, rhonchi, or rales, normal excursion, no accessory muscle use and no stridor CARDIOVASCULAR: Regular rate, rhythm, normal S1 and S2. No appreciated murmurs, rubs or gallops. Strong radial pulses with intact distal perfusion. No lower extremity edema GASTROINTESTINAL: Soft, active bowel sounds throughout, non-tender, non- distended, no palpable masses, no rebound or guarding. No hepatosplenomegaly no CVA tenderness GENITOURINARY: MUSCULOSKELETAL: Extremities have no gross deformity, no edema, redness, or swelling. NEUROLOGIC:_a/o x 3, GCS 15, normal mentation and speech. Moves all extremities x 4 without motor or sensory deficit PSYCHIATRIC:_normal mood and affect, thought process is clear and linear Limitations: no limitations Course Vital Signs 07/27/24 07/28/24 07/28/24 17:47 00:00 04:21 Temperature 97.8 F Pulse Rate 79 67 68 Respiratory 16 18 18 Rate Blood Pressure 157/84 150/84 190/88 O2 Sat by Pulse 96 94 L 97 Oximetry 07/28/24 07/28/24 07/28/24 07:09 08:11 08:29 Temperature 98.3 F Pulse Rate 87 78 74 Respiratory 20 Rate Blood Pressure 180/85 O2 Sat by Pulse 98 Oximetry 07/28/24 07/28/24 12:01 12:11 Temperature Pulse Rate 76 78 Respiratory Rate Blood Pressure O2 Sat by Pulse Oximetry Medical Decision Making - Medical Decision Making Was pt. sent in by a medical professional or institution (, PA, MERCHANDISING MANAGER, urgent care, hospital, or residential...) When possible be specific @ -No Did you speak to anyone other than the patient for history (EMS, parent, family, police, friend...)? What history was obtained from this source @ -No Did you review nursing and triage notes (agree or disagree)? Why? @ -I reviewed nursing and triage notes Were old charts reviewed (outside hosp., previous admission, EMS record, old EKG, old radiological studies, urgent care reports/EKG's, residential records)? Report findings @ -Medical records reviewed-reviewed microbiology results, UA obtained on 07/21/2024 shows Proteus ESBL, susceptible to ertapenem Differential Diagnosis (chest pain, altered mental status, abdominal pain women, abdominal pain men, vaginal bleeding, weakness, fever, dyspnea, syncope, headache, dizziness, GI bleed, back pain, seizure, CVA, palpatations, mental health, musculoskeletal)? Differential diagnosis remains broad over top considerations include acute cysti tis, pyelonephritis, ureterolithiasis, contaminated specimen is not all- inclusive list EKG interpreted by me (3pts min.). @ -As above X-rays interpreted by me (1pt min.). @ -None done CT interpreted by me (1pt min.). @ -None done U/S interpreted by me (1pt. min.). @ -None done What testing was considered but not performed or refused? (CT, X-rays, U/S, labs)? Why? @ -None What meds were considered but not given or refused? Why? @ -None Did you discuss the management of the patient with other professionals (professionals i.e. , PA, MERCHANDISING MANAGER, lab, RT, psych nurse, social research assistant, russian language professor, teacher, giving officer, casework specialist)? Give summary @ -No Was smoking cessation discussed for >3mins.? @ -No Was critical care preformed (if so, how long)? @ -No Were there social determinants of health that impacted care today? How? (Homelessness, low income, unemployed, alcoholism, drug addiction, transporta tion, low edu. Level, literacy, decrease access to med. care, half-way, rehab)? @ -No Was there de-escalation of care discussed even if they declined (Discuss DNR or withdrawal of care, Hospice)? @ -No What co-morbidities impacted this encounter? (DM, HTN, Smoking, COPD, CAD, Cancer, CVA, ARF, Chemo, Hep., AIDS, mental health diagnosis, sleep apnea, morbid obesity)? @ -None Was patient admitted / discharged? Hospital course, mention meds given and route, prescriptions, significant lab abnormalities, going to OR and other pertinent info. @[id number]-old female presenting today for UTI resistant to outpatient antibiotics. Vital signs stable on arrival. Patient does not meet SIRS criteria. She does not appear septic.On review of the microbiology, UA obtained on 07/21/2024 shows Proteus Mirabellis ESBL MDRO. Ordered ertapenem. Discussed w/ pt plan for admission. Case discussed with Dr. Main who kindly excepted patient for admission. Dr. Breaux consulted. Undiagnosed new problem with uncertain prognosis? @ -No Drug Therapy requiring intensive monitoring for toxicity (Heparin, Nitro, Insulin, Cardizem)? @ -No Were any procedures done? @ -No Diagnosis/symptom? Urinary tract infection, ESBL MRDO Acute, or Chronic, or Acute on Chronic? @ -acute Uncomplicated (without systemic symptoms) or Complicated (systemic symptoms)? @uncomplicated Side effects of treatment? @ -No Exacerbation, Progression, or Severe Exacerbation? @ -No Poses a threat to life or bodily function? How? (Chest pain, USA, DC, pneumonia, PE, COPD, DKA, ARF, appy, cholecystitis, CVA, Diverticulitis, Homicidal, Suicidal, threat to staff... and all critical care pts) @Potentially, if left untreated could result in sepsis or septic shock - Lab Data Result diagrams: 07/28/24 06:13 07/28/24 06:13 Lab Results 07/27/24 07/27/24 07/27/24 Range/Units 18:27 18:41 18:41 WBC 7.23 (4.50-10.00) 10*3/uL RBC 4.51 (4.10-5.20) 10*6/uL Hgb 13.6 (12.0-15.0) g/dL Hct 42.4 (37.2-46.3) % MCV 94.0 (80.0-97.0) fL MCH 30.2 (27.0-32.0) pg MCHC 32.1 (32.0-37.0) g/dL Plt Count 257 (140-440) 10*3/uL MPV 9.2 L (9.5-12.2) fL Immature Gran % (Auto) 0.3 % Neutrophils % 72.8 % Lymphocytes % 17.2 % Monocytes % 6.5 % Eosinophils % 2.9 % Basophils % 0.3 % Immature Gran # 0.02 (0.00-0.04) 10*3/uL Neutrophils # 5.27 (1.80-7.70) 10*3/uL Lymphocytes # 1.24 (0.90-5.00) 10*3/uL Monocytes # 0.47 (0.20-1.00) 10*3/uL Eosinophils # 0.21 (0.04-0.35) 10*3/uL Basophils # 0.02 (0.00-0.10) 10*3/uL Sodium 141 (137-145) mmol/L Potassium 4.7 (3.5-5.1) mmol/L Chloride 103 (98-107) mmol/L Carbon Dioxide 26 (22-30) mmol/L Anion Gap 12 mmol/L BUN 26 H (7-17) mg/dL Creatinine 0.72 (0.52-1.04) mg/dL Est GFR (CKD-EPI)AfAm >90 (>60 ml/min/1.73 sqM) Est GFR (CKD-EPI)NonAf 81 (>60 ml/min/1.73 sqM) Glucose 94 (74-99) mg/dL Calcium 10.0 (8.4-10.2) mg/dL Total Bilirubin 0.4 (0.2-1.3) mg/dL AST 27 (14-36) U/L ALT 18 (4-34) U/L Alkaline Phosphatase 46 (38-126) U/L C-Reactive Protein 0.7 (<1.0) mg/dL Total Protein 7.2 (6.3-8.2) g/dL Albumin 4.5 (3.5-5.0) g/dL Urine Color Colorless Urine Appearance Clear (Clear) Urine pH 5.5 (5.0-8.0) Ur Specific [place] 1.017 (1.001-1.035) Urine Protein Negative (Negative) Urine Glucose (UA) Negative (Negative) Urine Ketones Negative (Negative) Urine Blood Negative (Negative) Urine Nitrite Negative (Negative) Urine Bilirubin Negative (Negative) Urine Urobilinogen <2.0 (<2.0) mg/dL Ur Leukocyte Esterase Moderate H (Negative) Urine RBC 3 (0-5) /hpf Urine WBC 53 H (0-5) /hpf Ur Squamous Epith Cells <1 (0-4) /hpf Urine Bacteria Rare H (None) /hpf Urine Mucus Rare H (None) /hpf 07/28/24 07/28/24 Range/Units 06:13 06:13 WBC 8.19 (4.50-10.00) 10*3/uL RBC 4.00 L (4.10-5.20) 10*6/uL Hgb 12.0 (12.0-15.0) g/dL Hct 37.8 (37.2-46.3) % MCV 94.5 (80.0-97.0) fL MCH 30.0 (27.0-32.0) pg MCHC 31.7 L (32.0-37.0) g/dL Plt Count 229 (140-440) 10*3/uL MPV 9.3 L (9.5-12.2) fL Immature Gran % (Auto) % Neutrophils % % Lymphocytes % % Monocytes % % Eosinophils % % Basophils % % Immature Gran # (0.00-0.04) 10*3/uL Neutrophils # (1.80-7.70) 10*3/uL Lymphocytes # (0.90-5.00) 10*3/uL Monocytes # (0.20-1.00) 10*3/uL Eosinophils # (0.04-0.35) 10*3/uL Basophils # (0.00-0.10) 10*3/uL Sodium 140 (137-145) mmol/L Potassium 3.7 (3.5-5.1) mmol/L Chloride 106 (98-107) mmol/L Carbon Dioxide 26 (22-30) mmol/L Anion Gap 8 mmol/L BUN 26 H (7-17) mg/dL Creatinine 0.51 L (0.52-1.04) mg/dL Est GFR (CKD-EPI)AfAm >90 (>60 ml/min/1.73 sqM) Est GFR (CKD-EPI)NonAf >90 (>60 ml/min/1.73 sqM) Glucose 89 (74-99) mg/dL Calcium 9.3 (8.4-10.2) mg/dL Total Bilirubin (0.2-1.3) mg/dL AST (14-36) U/L ALT (4-34) U/L Alkaline Phosphatase (38-126) U/L C-Reactive Protein (<1.0) mg/dL Total Protein (6.3-8.2) g/dL Albumin (3.5-5.0) g/dL Urine Color Urine Appearance (Clear) Urine pH (5.0-8.0) Ur Specific [place] (1.001-1.035) Urine Protein (Negative) Urine Glucose (UA) (Negative) Urine Ketones (Negative) Urine Blood (Negative) Urine Nitrite (Negative) Urine Bilirubin (Negative) Urine Urobilinogen (<2.0) mg/dL Ur Leukocyte Esterase (Negative) Urine RBC (0-5) /hpf Urine WBC (0-5) /hpf Ur Squamous Epith Cells (0-4) /hpf Urine Bacteria (None) /hpf Urine Mucus (None) /hpf Disposition Clinical Impression: Urinary tract infection Disposition: ADMITTED IP TO THIS HOSP Condition: Stable
[2024-07-27] MEDS: ERTAPENEM 1 GM in SODIUM CHLORIDE 0.9% 50 ML IVPB STA (19:38)
[2024-07-27] MEDS ORDERED: ACETAMINOPHEN TAB 325 MG TAB PO PRN (20:52)
[2024-07-27] MEDS ORDERED: CALCIUM CARBONATE 500 MG CHEWABLE PO PRN ×2 (20:52→20:54)
[2024-07-27] MEDS ORDERED: MAG HYDROX/AL HYDROX/SIMETH 30 ML CUP PO PRN (20:52)
[2024-07-27] MEDS ORDERED: NALOXONE 0.4 MG/ML 1 ML VIAL IV PRN (20:52)
[2024-07-27] MEDS: ATORVASTATIN 10 MG TAB PO SCH (21:07)
[2024-07-27] MEDS: MONTELUKAST 10 MG TAB PO SCH (21:07)
[2024-07-27] MEDS ORDERED: guaiFENesin 600 MG TABLET.ER PO PRN (21:39)
--- NOTE | 2024-07-27 21:47 | P.HPIM ---
History of Present Illness H&P Date: 07/27/24 History of present illness; Patient is a 78-year-old female with history of multiple UTIs who presents with abnormal urine culture. Patient was recently having lower urinary symptoms of burning, itchy, and some mild pain with urination increased frequency without blood. She denies symptoms of fever, chills. She completed urinalysis with culture and was found to be ESBL positive, and was sent to hospital for treatment with IV antibiotics. She continues to have these symptoms at this time. Denies chest pain, dyspnea, abdominal pain, nausea, vomiting. Spoke with the ER physician, patient admission was accepted by internal medicine service for treatment. REVIEW OF SYSTEMS: Pertinent positives and negatives noted in HPI. PHYSICAL EXAMINATION: Vitals reviewed GENERAL: Resting comfortably in bed. With nasal cannula. EYES: PERRL, no scleral injection or icterus. No vision loss HENT: Normocephalic, atraumatic, hearing grossly intact, moist mucous membranes NECK: No tracheal deviation, full range of motion. CARDIOVASCULAR: S1 and S2 present. No murmurs, rubs, or gallops. PULMONARY: Chest is clear to auscultation, no wheezing, rhonchi, or crackles. ABDOMEN: Soft, nontender, nondistended. No palpable organomegaly. MUSCULOSKELETAL: No apparent joint swelling and deformities. EXTREMITIES: No apparent cyanosis, clubbing. No pedal edema. NEUROLOGICAL: Alert and oriented. Gross neurological examination with no apparent focal deficits. SKIN: No apparent rashes. ER FINDINGS: Labs significant for WBC 7.2, BUN 26, creatinine 0.72, UA significant for moderate leukocyte esterase, WBC 53 Assessment and Plan: In summary, patient is a 78-year-old female who presents with abnormal urine culture. #Acute cystitis with urine culture positive for ESBL Urine culture positive for Proteus Mirabella's ESBL MDRO on 07-21-24 -UA with elevated nitrate and LE -Begin ertapenem 1 g daily Acetaminophen 650 every 6 hours as needed for pain -Urine culture pending - PICC line ordered Monitor CBC, BMP Infectious disease consulted -Patient requires PICC line placement for outpatient antibiotics Chronic Medical Conditions #Asthma/COPD #Chronic hypoxic respiratory failure #Hyperlipidemia Resume home medications DVT ppx: Subq Lovenox 40 meq daily Code status: Full code F: P.o. E: Replete as needed N: Regular diet A: Ambulatory Anticipated discharge place: Pending clinical course Anticipated discharge time: Pending clinical course Dictation was produced using [employer] dictation software. Please excuse any grammatical, word or spelling errors. I saw and evaluated the patient during the figueroa and critical portions of this encounter, and discussed the case in detail with the resident author of this note, I agree with the Assessment and Plan, and my changes, if any, are highlighted in blue. Past Medical History Past Medical History: Asthma, Cancer, COPD, Hyperlipidemia, Pneumonia Additional Past Medical History / Comment(s): Hx. arthritis History of Any Multi-Drug Resistant Organisms: ESBL Date of last positivie culture/infection: 07/21/24 MDRO Source:: Urine Past Surgical History: Orthopedic Surgery Additional Past Surgical History / Comment(s): Hx. cataracts removed - bilat Hx.left carotid endart 2-3 yrs ago Hx. partial hyster 1987 Hx 1970rt ankle surgery after falling (5 operations) after 2.5 yrs Past Anesthesia/Blood Transfusion Reactions: No Reported Reaction Past Psychological History: No Psychological Hx Reported Past Alcohol Use History: Rare - Past Family History Father Family Medical History: Cancer Additional Family Medical History / Comment(s): skin cancer Mother Additional Family Medical History / Comment(s): bedridden with arthritis Sister(s) Family Medical History: Cancer Additional Family Medical History / Comment(s): . Brother(s) Family Medical History: Cancer, Deep Vein Thrombosis (DVT), Pulmonary Embolus Additional Family Medical History / Comment(s): . Medications and Allergies Home Medications Medication Instructions Recorded Confirmed Type Montelukast Sodium [Singulair] 10 mg PO DAILY 06/05/14 07/27/24 History Simvastatin [Zocor] 20 mg PO DAILY 06/05/14 07/27/24 History Acetaminophen Tab [Tylenol] 1,000 mg PO QID PRN 09/14/18 07/27/24 History L.acidoph,Paracasei, B.lactis 1 cap PO DAILY 01/02/20 07/27/24 History [Probiotic] Allergy Eye Drops Otc(Unknown) 1 drop BOTH EYES DAILY PRN 07/27/24 07/27/24 History Cetirizine HCl [Zyrtec] 10 mg PO DAILY 07/27/24 07/27/24 History Co Q-10(Unknown Dose) 1 tab PO DAILY 07/27/24 07/27/24 History Fluticasone Nasal [place] [Flonase 1 spr EA NOSTRIL DAILY 07/27/24 07/27/24 History Nasal [place]] Fluticasone/Umeclidin/Vilanter 1 puff INHALATION RT-DAILY 07/27/24 07/27/24 History [Trelegy Ellipta 200-62.5-25] Ibuprofen [Motrin Ib] 600 mg PO Q6H PRN 07/27/24 07/27/24 History Levalbuterol Nebulized [Xopenex 1.25 mg INHALATION RT-TID 07/27/24 07/27/24 Hist ory Nebulized] Omeprazole 40 mg PO DAILY 07/27/24 07/27/24 History Roflumilast [Daliresp] 500 mcg PO DAILY 07/27/24 07/27/24 History Venlafaxine HCl ER [Effexor Xr] 37.5 mg PO DAILY 07/27/24 07/27/24 History guaiFENesin [Mucinex] 600 mg PO BID PRN 07/27/24 07/27/24 History predniSONE 2.5 mg PO DAILY 07/27/24 07/27/24 History predniSONE 10 mg PO DAILY 07/27/24 07/27/24 History Allergies Allergy/AdvReac Type Severity Reaction Status Date / Time adhesive tape Allergy blisters,pulls Verified 07/27/24 21:25 skin off cephalexin monohydrate Allergy Unknown Verified 07/27/24 21:25 [From Keflex] codeine AdvReac Nausea Verified 07/27/24 21:25 METAL Allergy Swelling Uncoded 07/27/24 21:25 Physical Exam Osteopathic Statement: *. No significant issues noted on an osteopathic structural exam other than those noted in the History and Physical/Consult. Vitals: Vital Signs Temp Pulse Resp BP Pulse Ox 07/27/24 17:47 97.8 F 79 16 157/84 96 Intake and Output 07/27/24 07/27/24 07/27/24 06:59 14:59 22:59 Other: Weight 81.647 kg Results CBC & Chem 7: 07/27/24 18:41 07/27/24 18:41 Labs: Abnormal Lab Results - Last 24 Hours (Table) 07/27/24 07/27/24 07/27/24 Range/Units 18:27 18:41 18:41 MPV 9.2 L (9.5-12.2) fL BUN 26 H (7-17) mg/dL Ur Leukocyte Esterase Moderate H (Negative) Urine WBC 53 H (0-5) /hpf Urine Bacteria Rare H (None) /hpf Urine Mucus Rare H (None) /hpf
[2024-07-28] MEDS: BUDESONIDE 0.5 MG/2 ML NEBU INHALATION SCH (02:39)
[2024-07-28 07:16] LABS: HCT 37.8 % (37.2-46.3); MCHC 31.7 g/dL (32.0-37.0); MCV 94.5 fL (80.0-97.0); Mean Platelet Volume 9.3 fL (9.5-12.2); Platelet Count 229 10*3/uL (140-440); RDW 14.3 % (11.5-14.5); WBC 8.19 10*3/uL (4.50-10.00)
[2024-07-28 07:32] LABS: African American GFR (CKD) >90 (>60 ml/min/1.73 sqM); Anion Gap 8 mmol/L; Blood Urea Nitrogen 26 mg/dL (7-17); Calcium 9.3 mg/dL (8.4-10.2); Carbon Dioxide 26 mmol/L (22-30); Chloride 106 mmol/L (98-107); Glucose 89 mg/dL (74-99); Non-African American GFR(CKD) >90 (>60 ml/min/1.73 sqM); Potassium 3.7 mmol/L (3.5-5.1); Sodium 140 mmol/L (137-145)
[2024-07-28] MEDS: IPRATROPIUM-ALBUTEROL 3 ML NEB INHALATION SCH (08:11)
[2024-07-28] MEDS: VENLAFAXINE HCL ER 75 MG CAP PO SCH (13:23)
[2024-07-28] MEDS: ASPIRIN 81 MG PO SCH (13:23)
[2024-07-28] MEDS: PANTOPRAZOLE 40 MG TABLET PO SCH (13:23)
[2024-07-28] MEDS: LORATADINE 10 MG TAB PO SCH (13:24)
[2024-07-28] MEDS: NON FORMULARY DRUG (Roflumilast [Daliresp] 500 MCG Tablet) PO SCH (13:25)
[2024-07-28] MEDS: ENOXAPARIN 40 MG/0.4 ML SYRINGE SQ SCH (13:25)
[2024-07-28] MEDS: VANCOMYCIN 125 MG CAPSULE PO SCH (14:28)
[2024-07-28] MEDS: FLUTICASONE NASAL 50MCG/SPRAY 16GM BTL EA NOSTRIL SCH (14:28)
[2024-07-28] MEDS: predniSONE 10 MG TAB PO SCH (14:28)
[2024-07-28] MEDS: predniSONE 2.5 MG TAB PO SCH (14:28)
[2024-07-28] MEDS: ERTAPENEM 1 GM in SODIUM CHLORIDE 0.9% 50 ML IVPB SCH (15:36)
--- NOTE | 2024-07-28 15:51 | P.PN ---
Subjective Progress Note Date: 07/28/24 Hospital Course: Patient is a 78-year-old female with history of multiple UTIs who presents with abnormal urine culture. Patient was recently having lower urinary symptoms of burning, itchy, and some mild pain with urination increased frequency without blood. She denies symptoms of fever, chills. She completed urinalysis with culture and was found to be ESBL positive, and was sent to hospital for maria luz atment with IV antibiotics. She continues to have these symptoms at this time. Denies chest pain, dyspnea, abdominal pain, nausea, vomiting. Subjective: Patient seen and examined at bedside today. No acute events overnight. Still reports dysuria with burning sensation. Denies fever, chills, chest pain, shortness of breath, nausea or vomiting, belly pain, diarrhea, constipation, lower extremity swelling. Pertinent positives and negatives as discussed above, a complete review of systems was performed and all other systems are negative. Vitals: Signs Reviewed Physical Exam: General: nontoxic, no distress, appears at stated age Derm: warm, dry, intact Head: atraumatic, normocephalic, symmetric Eyes: EOMI, anicteric sclera Mouth: no lip lesion, mucus membranes moist Cardiovascular: S1 S2 reg, no murmur, rubs, or gallops Lungs: CTA bilateral, no rhonchi, no rales, no accessory muscle use Abdominal: soft, non-tender to palpataion, no appreciable organomegaly Extremities: no gross muscle atrophy, no edema, no contractures Neuro: Alert, Oriented, CNII-XII grossly intact, gait normal Psych: well appearing, appropriate affect Data Received Today: Pertinent Labs: WBC 8.19, hemoglobin 12, hematocrit 37.8, platelets 229, sodium 140, potassium 3.7, chloride 106, carbon dioxide 26, BUN 26, creatinine 0.51 Vitals temperature 97.8, heart rate 68, respiratory rate 18, blood pressure 190/88, O2 sat 97% on nasal cannula 2 L/min Assessment and Plan: In summary, patient is a 78-year-old female who presents with abnormal urine culture. #Acute cystitis with urine culture positive for ESBL Urine culture positive for Proteus Mirabella's ESBL MDRO on 07-21-24 -UA with elevated nitrate and LE - Continue ertapenem 1 g daily Acetaminophen 650 every 6 hours as needed for pain -Urine culture pending Monitor morning CBC and BMP Infectious disease consulted, likely no need for PICC line, will likely be discharged on Wednesday after completing IV antibiotics Chronic Medical Conditions #Asthma/COPD #Chronic hypoxic respiratory failure #Hyperlipidemia Resume home medications DVT ppx: Subq Lovenox 40 meq daily Code status: Full code F: P.o. E: Replete as needed N: Regular diet A: Ambulatory Anticipated discharge place: Pending clinical course Anticipated discharge time: Pending clinical course Dictation was produced using [employer] dictation software. Please excuse any grammatical, word or spelling errors. I have seen and evaluated the patient today. Discussed with the resident and agree with the residents finding and plan as documented in the resident's note. Changes highlighted in blue font. Objective - Vital Signs Vital signs: Vital Signs Temp 97.8 F 07/27/24 17:47 Pulse 68 07/28/24 04:21 Resp 18 07/28/24 04:21 BP 190/88 07/28/24 04:21 Pulse Ox 97 07/28/24 04:21 FiO2 Intake & Output 07/27/24 07/27/24 07/28/24 06:59 18:59 06:59 Weight 81.647 kg - Labs CBC & Chem 7: 07/28/24 06:13 07/28/24 06:13 Labs: Abnormal Lab Results - Last 24 Hours (Table) 07/27/24 07/27/24 07/27/24 Range/Units 18:27 18:41 18:41 MPV 9.2 L (9.5-12.2) fL BUN 26 H (7-17) mg/dL Ur Leukocyte Esterase Moderate H (Negative) Urine WBC 53 H (0-5) /hpf Urine Bacteria Rare H (None) /hpf Urine Mucus Rare H (None) /hpf
[2024-07-28] MEDS: MICONAZOLE 2% VAGINAL CREAM 45 GM TUBE/KIT VAGINAL SCH (20:37)
[2024-07-28] MEDS: FLUCONAZOLE 150 MG TAB PO STA (21:36)
--- NOTE | 2024-07-28 21:56 | P.CONS ---
History of Present Illness - Reason for Consult Consult date: 07/28/24 ESBL UTI Requesting physician: Allyson Mace - Chief Complaint Urinary burning and suprapubic discomfort X few days - History of Present Illness Patient is a 78-year-old female with a past medical history significant for hyperlipidemia COPD asthma and pneumonia history of recurrent UTIs as well as C. difficile colitis presenting to the hospital for evaluation of dysuria itching and suprapubic discomfort in this patient who recently did have an outpatient urine culture positive for ESBL Proteus this seemed to have not responded to the oral antibiotics patient denies high-grade fever or any chills denies having any headache or URI symptoms. Denies having any chest pain or worsening cough some nausea but no vomiting patient denies any flank pain no diarrhea did have a urinary burning as well as suprapubic discomfort no hematuria patient on presentation to the hospital was afebrile no fever have been called subsequently patient was not tachycardic or hypotensive patient did have white count of 7.23 creatinine 0.72 electrolyte has been normal liver enzymes normal urine has been positive patient did received a dose of Invanz in the ER infectious disease was consulted for further management of antibiotic therapy Review of Systems Positive point and negatives has been mentioned in the HPI, complete review of systems was performed and all other systems are negative Past Medical History Past Medical History: Asthma, Cancer, COPD, Hyperlipidemia, Pneumonia Additional Past Medical History / Comment(s): Hx. arthritis History of Any Multi-Drug Resistant Organisms: ESBL Year Discovered:: 07/21/24 MDRO Source:: Urine Past Surgical History: Orthopedic Surgery Additional Past Surgical History / Comment(s): Hx. cataracts removed - bilat Hx.left carotid endart 2-3 yrs ago Hx. partial hyster 1987 Hx 1970rt ankle surgery after falling (5 operations) after 2.5 yrs Past Anesthesia/Blood Transfusion Reactions: No Reported Reaction Past Psychological History: No Psychological Hx Reported Past Alcohol Use History: Rare - Past Family History Father Family Medical History: Cancer Additional Family Medical History / Comment(s): skin cancer Mother Additional Family Medical History / Comment(s): bedridden with arthritis Sister(s) Family Medical History: Cancer Additional Family Medical History / Comment(s): . Brother(s) Family Medical History: Cancer, Deep Vein Thrombosis (DVT), Pulmonary Embolus Additional Family Medical History / Comment(s): . Medications and Allergies Home Medications Medication Instructions Recorded Confirmed Type Montelukast Sodium [Singulair] 10 mg PO DAILY 06/05/14 07/27/24 History Simvastatin [Zocor] 20 mg PO DAILY 06/05/14 07/27/24 History Acetaminophen Tab [Tylenol] 1,000 mg PO QID PRN 09/14/18 07/27/24 History L.acidoph,Paracasei, B.lactis 1 cap PO DAILY 01/02/20 07/27/24 History [Probiotic] Allergy Eye Drops Otc(Unknown) 1 drop BOTH EYES DAILY PRN 07/27/24 07/27/24 History Cetirizine HCl [Zyrtec] 10 mg PO DAILY 07/27/24 07/27/24 History Co Q-10(Unknown Dose) 1 tab PO DAILY 07/27/24 07/27/24 History Fluticasone Nasal [place] [Flonase 1 spr EA NOSTRIL DAILY 07/27/24 07/27/24 History Nasal [place]] Fluticasone/Umeclidin/Vilanter 1 puff INHALATION RT-DAILY 07/27/24 07/27/24 History [Trelegy Ellipta 200-62.5-25] Ibuprofen [Motrin Ib] 600 mg PO Q6H PRN 07/27/24 07/27/24 History Levalbuterol Nebulized [Xopenex 1.25 mg INHALATION RT-TID 07/27/24 07/27/24 History Nebulized] Omeprazole 40 mg PO DAILY 07/27/24 07/27/24 History Roflumilast [Daliresp] 500 mcg PO DAILY 07/27/24 07/27/24 History Venlafaxine HCl ER [Effexor XR] 37.5 mg PO DAILY 07/27/24 07/27/24 History guaiFENesin [Mucinex] 600 mg PO BID PRN 07/27/24 07/27/24 History predniSONE 2.5 mg PO DAILY 07/27/24 07/27/24 History predniSONE 10 mg PO DAILY 07/27/24 07/27/24 History Vancomycin HCl 125 mg PO DAILY 7 Days #7 cap 07/29/24 Rx Allergies Allergy/AdvReac Type Severity Reaction Status Date / Time adhesive tape Allergy blisters,pulls Verified 07/27/24 21:25 skin off cephalexin monohydrate Allergy Unknown Verified 07/27/24 21:25 [From Keflex] codeine AdvReac Nausea Verified 07/27/24 21:25 METAL Allergy Swelling Uncoded 07/27/24 21:25 Physical Exam Vitals: Vital Signs Temp Pulse Resp BP Pulse Ox 07/28/24 08:11 78 07/28/24 07:09 98.3 F 87 20 180/85 98 07/28/24 04:21 68 18 190/88 97 07/28/24 00:00 67 18 150/84 94 L 07/27/24 17:47 97.8 F 79 16 157/84 96 Intake and Output 07/27/24 07/28/24 07/28/24 22:59 06:59 14:59 Other: Weight 81.647 kg GENERAL DESCRIPTION: Elderly female lying in bed, no distress. No tachypnea or accessory muscle of respiration use. HEENT: Shows Pallor , no scleral icterus. Oral mucous membrane is dry. NECK: Trachea central, no thyromegaly. LUNGS: Unlabored breathing. Clear to auscultation anteriorly. No wheeze or crackle. HEART: S1, S2, regular rate and rhythm. No loud murmur ABDOMEN: Soft, no tenderness , EXTREMITIES: No edema of feet. SKIN: No rash, no masses palpable. NEUROLOGICAL: The patient is awake, alert, oriented x3, mood and affect normal. Results CBC & Chem 7: 07/28/24 06:13 07/28/24 06:13 Labs: Abnormal Lab Results - Last 24 Hours (Table) 07/27/24 07/27/24 07/27/24 Range/Units 18:27 18:41 18:41 RBC (4.10-5.20) 10*6/uL MCHC (32.0-37.0) g/dL MPV 9.2 L (9.5-12.2) fL BUN 26 H (7-17) mg/dL Creatinine (0.52-1.04) mg/dL Ur Leukocyte Esterase Moderate H (Negative) Urine WBC 53 H (0-5) /hpf Urine Bacteria Rare H (None) /hpf Urine Mucus Rare H (None) /hpf 07/28/24 07/28/24 Range/Units 06:13 06:13 RBC 4.00 L (4.10-5.20) 10*6/uL MCHC 31.7 L (32.0-37.0) g/dL MPV 9.3 L (9.5-12.2) fL BUN 26 H (7-17) mg/dL Creatinine 0.51 L (0.52-1.04) mg/dL Ur Leukocyte Esterase (Negative) Urine WBC (0-5) /hpf Urine Bacteria (None) /hpf Urine Mucus (None) /hpf Assessment and Plan (1) History of Clostridioides difficile colitis Status: Acute Code(s): Z86.19 - PERSONAL HISTORY OF OTHER INFECTIOUS AND P ARASITIC DISEASES SNOMED Code(s): 502784115 (2) Allergy to cephalosporin Status: Acute Code(s): Z88.1 - ALLERGY STATUS TO OTHER ANTIBIOTIC AGENTS SNOMED Code(s): 421997789 (3) Infection due to extended spectrum beta lactamase (ESBL) producing Proteus mirabilis Status: Acute Code(s): A49.8 - OTHER BACTERIAL INFECTIONS OF UNSPECIFIED SITE; Z16.12 - EXTENDED SPECTRUM BETA LACTAMASE (ESBL) RESISTANCE SNOMED Code(s): 3484364155 (4) Urinary tract infection Status: Acute Code(s): N39.0 - URINARY TRACT INFECTION, SITE NOT SPECIFIED SNOMED Code(s): 92788001 Plan: 1patient presented to hospital with burning of urine suprapubic discomfort did have a positive UA outpatient culture positive for ESBL Proteus failing outpatient oral antibiotic therapy concerning for symptomatic UTI behaving more for cystitis rather than deep infection. 2patient with a history of C. difficile colitis and high risk for recurrent C. difficile with current antibiotic exposure 3cephalexin allergy 4we will start the patient on Invanz 1 g daily and a 3-day course of antibiotic should be enough no need for PICC line and arrangement for outpatient IV antibiotic therapy. 5we will add oral vancomycin to 125 mg p.o. daily as prophylaxis to prevent recurrent C. difficile colitis and culture increase her probiotic and yogurt intake Multiple question concern answered We will follow on clinical condition and cultures to further adjust medication if needed Thank you for this consultation we will follow the patient along with you Dictation was produced using [email or web address] software. please excuse any grammatical, word or spelling errors. Time with Patient: Greater than 30
[2024-07-29 07:27] VITALS: BP 165/76; RESP 17; TEMP 98
[2024-07-29 12:05] VITALS: PULSE 83
--- NOTE | 2024-07-29 13:14 | P.DS ---
Providers Date of admission: 07/28/24 09:45 Expected date of discharge: 07/29/24 Attending physician: Shaka Main Consults: 07/27/24 20:52 Consult Physician Urgent Consulting Provider: Emily Breaux Consult Reason/Comments: ESBL UTI Do you want consulting provider notified?: Yes, Notify in am [facility] care [facility] Course: I have seen and evaluated the patient today. Discussed with the resident and agree with the residents finding and plan as documented in the resident's note. Changes highlighted in blue font. Hospital course: Patient is a 78-year-old female with history of multiple UTIs who presents with abnormal urine culture. Patient was recently having lower urinary symptoms of burning, itchy, and some mild pain with urination increased frequency without blood. She denies symptoms of fever, chills. She completed urinalysis with culture and was found to be ESBL positive, and was sent to hospital for treatment with IV antibiotics. She continues to have these symptoms at this time. Denies chest pain, dyspnea, abdominal pain, nausea, vomiting. Per recommendation from infectious disease, patient will complete a 3-day course of Invanz 1 g daily, there is no need for PICC line and arrangement for outpatient IV divided therapy. Patient was started on ertapenem on 07/27/2024. Patient received her third dose on 07/29/2024. Patient is medically stable to be discharged back home on 07/29/2024. Vancomycin 125 mg daily for 7 days has been added to patient's medication list to prevent recurrent C. difficile colitis. Recommend to follow-up with PCP in 1 to 2 days after discharge. Patient was noted to have elevated blood pressure readings throughout her hospitalization, she reports that her blood pressure normally runs normal at home, before PCP visits, she checks her blood pressure daily and keeps a log of the readings, again, those are usually normal. We recommended patient to follow-up with PCP closely and continue checking her blood pressure daily and keeping the log of the readings, no medications initiated at that time, anticipate blood pressure to be back to normal after discharge. Physical exam GENERAL: This is a 78-year-old in no apparent distress at the time of examination. Pleasant and cooperative. HEENT: Head is atraumatic, normocephalic. Pupils are equal, round, and reactive to light. Sclerae anicteric. Conjunctivae are clear. Mucus membranes of the mouth are moist. Neck is supple. RESPIRATORY: Clear to auscultation. No wheezes, rales, or rhonchi. No use of accessory muscles. Patient maintaining oxygen saturation greater than 92%. No chest wall tenderness is noted on palpation or with deep breathing. CARDIOVASCULAR: Regular rate and rhythm. S1 and S2 noted. No systolic or diastolic murmur auscultated. No JVD noted. No S3 or S4 noted. GASTROINTESTINAL: No distention noted. Abdomen soft and round. Normal active bowel sounds auscultated x 4 quadrants. No pain or tenderness noted upon palpation. INTEGUMENTARY: No cyanosis. No jaundice. No rashes noted. No cellulitis noted. EXTREMITIES: 2+ peripheral pulses. No evidence of peripheral edema. No calf tenderness noted. NEUROLOGIC: Cranial nerves II-XII intact. PSYCHIATRIC: Awake, alert, and oriented X 3. Appropriate affect. Intact judgement and insight. Discharge diagnosis Acute cystitis with urine culture positive for ESBL Asthma COPD Chronic hypoxic respiratory failure Hyperlipidemia Patient Condition at Discharge: Stable Plan - Discharge Summary Discharge Rx Participant: No New Discharge Prescriptions: New Vancomycin HCl 125 mg PO DAILY 7 Days #7 cap Continue Simvastatin [Zocor] 20 mg PO DAILY Montelukast Sodium [Singulair] 10 mg PO DAILY Acetaminophen Tab [Tylenol] 1,000 mg PO QID PRN PRN Reason: Pain L.acidoph,Paracasei, B.lactis [Probiotic] 1 cap PO DAILY Omeprazole 40 mg PO DAILY guaiFENesin [Mucinex] 600 mg PO BID PRN PRN Reason: Congestion Fluticasone/Umeclidin/Vilanter [Trelegy Ellipta 200-62.5-25] 1 puff INHALATION RT-DAILY Fluticasone Nasal [place] [Flonase Nasal [place]] 1 spr EA NOSTRIL DAILY Venlafaxine HCl ER [Effexor XR] 37.5 mg PO DAILY Roflumilast [Daliresp] 500 mcg PO DAILY predniSONE 2.5 mg PO DAILY predniSONE 10 mg PO DAILY Levalbuterol Nebulized [Xopenex Nebulized] 1.25 mg INHALATION RT-TID Ibuprofen [Motrin Ib] 600 mg PO Q6H PRN PRN Reason: Pain Cetirizine HCl [Zyrtec] 10 mg PO DAILY Co Q-10(Unknown Dose) 1 tab PO DAILY Allergy Eye Drops Otc(Unknown) 1 drop BOTH EYES DAILY PRN PRN Reason: Allergy Symptoms Discharge Medication List Montelukast Sodium [Singulair] 10 mg PO DAILY 06/05/14 [History] Simvastatin [Zocor] 20 mg PO DAILY 06/05/14 [History] Acetaminophen Tab [Tylenol] 1,000 mg PO QID PRN 09/14/18 [History] L.acidoph,Paracasei, B.lactis [Probiotic] 1 cap PO DAILY 01/02/20 [History] Allergy Eye Drops Otc(Unknown) 1 drop BOTH EYES DAILY PRN 07/27/24 [History] Cetirizine HCl [Zyrtec] 10 mg PO DAILY 07/27/24 [History] Co Q-10(Unknown Dose) 1 tab PO DAILY 07/27/24 [History] Fluticasone Nasal [place] [Flonase Nasal [place]] 1 spr EA NOSTRIL DAILY 07/27/24 [History] Fluticasone/Umeclidin/Vilanter [Trelegy Ellipta 200-62.5-25] 1 puff INHALATION RT-DAILY 07/27/24 [History] Ibuprofen [Motrin Ib] 600 mg PO Q6H PRN 07/27/24 [History] Levalbuterol Nebulized [Xopenex Nebulized] 1.25 mg INHALATION RT-TID 07/27/24 [History] Omeprazole 40 mg PO DAILY 07/27/24 [History] Roflumilast [Daliresp] 500 mcg PO DAILY 07/27/24 [History] Venlafaxine HCl ER [Effexor XR] 37.5 mg PO DAILY 07/27/24 [History] guaiFENesin [Mucinex] 600 mg PO BID PRN 07/27/24 [History] predniSONE 2.5 mg PO DAILY 07/27/24 [History] predniSONE 10 mg PO DAILY 07/27/24 [History] Vancomycin HCl 125 mg PO DAILY 7 Days #7 cap 07/29/24 [Rx] Follow up Appointment(s)/Referral(s): Dedra Teague MD [Primary Care Provider] - 1-2 days Patient Instructions/Handouts: DASH Eating Plan (DC) Activity/Diet/Wound Care/Special Instructions: Recommend patient to undergo daily blood pressure checks and encourage DASH diet for elevated blood pressure. Recommend patient follow-up with PCP for hypertension 1 to 3 days after discharge. Discharge Disposition: HOME SELF-CARE
--- NOTE | 2024-07-30 13:06 | P.PN ---
Subjective Progress Note Date: 07/29/24 Principal diagnosis: Reason for follow-up is ESBL Proteus cystitis Patient is a 78-year-old female with a past medical history significant for hyperlipidemia COPD asthma and pneumonia history of recurrent UTIs as well as C. difficile colitis presenting to the hospital for evaluation of dysuria itching and suprapubic discomfort with recent outpatient urine culture positive for ESBL Proteus has been diagnosed with cystitis prompting this consultation. On today's evaluation that is 07/29/2024, Patient is afebrile this morning patient denies having any chest pain shortness of breath or cough, the patient is currently on 2 L nasal cannula oxygen, patient denies any abdominal pain no diarrhea no nausea no vomiting, mention improving her urinary symptoms. Patient did not have any lab draw today urine culture with ESBL Proteus Objective - Vital Signs Vital signs: Vital Signs Temp 98.0 F 07/29/24 07:26 Pulse 83 07/29/24 12:05 Resp 17 07/29/24 07:26 BP 165/76 07/29/24 07:26 Pulse Ox 99 07/29/24 07:26 FiO2 Intake & Output 07/28/24 07/29/24 07/29/24 18:59 06:59 18:59 Weight 81.647 kg Other: Voiding Method Toilet # Voids 2 2 - Exam GENERAL DESCRIPTION: An elderly female lying in bed in no distress RESPIRATORY SYSTEM: Unlabored breathing , decreased breath sounds at bases HEART: S1 S2 regular rate and rhythm , ABDOMEN: Soft , no tenderness EXTREMITIES: No edema feet - Labs CBC & Chem 7: 07/28/24 06:13 07/28/24 06:13 Labs: Microbiology - Last 24 Hours (Table) 07/27/24 18:27 Urine Culture - Preliminary Urine,Voided Assessment and Plan (1) History of Clostridioides difficile colitis Status: Acute Code(s): Z86.19 - PERSONAL HISTORY OF OTHER INFECTIOUS AND PARASITIC DISEASES SNOMED Code(s): 027822877 (2) Allergy to cephalosporin Status: Acute Code(s): Z88.1 - ALLERGY STATUS TO OTHER ANTIBIOTIC AGENTS SNOMED Code(s): 038416460 (3) Infection due to extended spectrum beta lactamase (ESBL) producing Proteus mirabilis Status: Acute Code(s): A49.8 - OTHER BACTERIAL INFECTIONS OF UNSPECIFIED SITE; Z16.12 - EXTENDED SPECTRUM BETA LACTAMASE (ESBL) RESISTANCE SNOMED Code(s): 7187304679 (4) Urinary tract infection Status: Acute Code(s): N39.0 - URINARY TRACT INFECTION, SITE NOT SPECIFIED SNOMED Code(s): 03437855 Plan: 1patient presented to hospital with burning of urine suprapubic discomfort did have a positive UA outpatient culture positive for ESBL Proteus failing outpatient oral antibiotic therapy concerning for symptomatic UTI behaving more for cystitis rather than deep infection. 2patient with a history of C. difficile colitis and high risk for recurrent C. difficile with current antibiotic exposure 3patient received her third dose of Invanz 1 g today and that she had been off for a cystitis no need for any antibiotic on discharge this were discussed with the resident physician May consider short course of oral vancomycin on discharge to decrease risk of C. difficile colitis Multiple question concern answered Dictation was produced using [employer] dictation software. please excuse any grammatical, word or spelling errors. Time with Patient: Less than 30
== END 2024-07-29 15:17 | disposition home or self-care (01) | DRG 690 ==
LOC: EC 17:31 → 6NMEDSUR 20:54 → OBSVTOIN 07-28 09:45 → 6NMEDSUR 07-28 14:25
PROVIDERS: ADMIT Student in an Organized Health Care Education/Training Program; ATTEND Student in an Organized Health Care Education/Training Program
DX: N30.00 Acute cystitis without hematuria (principal); J96.11 Chronic respiratory failure with hypoxia; J44.89 Other specified chronic obstructive pulmonary disease; Z16.12 Extended spectrum beta lactamase (ESBL) resistance; E78.5 Hyperlipidemia, unspecified; Z79.899 Other long term (current) drug therapy; Z87.440 Personal history of urinary (tract) infections; Z88.1 Allergy status to other antibiotic agents; B96.4 Proteus (mirabilis) (morganii) as the cause of diseases classified elsewhere; Z87.19 Personal history of other diseases of the digestive system; Z88.5 Allergy status to narcotic agent; Z91.048 Other nonmedicinal substance allergy status; Z87.01 Personal history of pneumonia (recurrent)
CPT/HCPCS: 36415; 80048; 80053; 81001; 85025; 85027; 86140; 87077; 87086; 87186; 94640; 96365; 96376; 99285